=== PATIENT | female | born 1945 | race Caucasian/White ===

== ENCOUNTER 2017-06-19 11:34 | Emergency (ER) | payer MEDICARE, BC ==
[~2017-06-19] VITALS: Ht 165.1 cm; Wt 103.9 kg
[~2017-06-19 11:34] MED LIST: CITA-48 PO; HYDR-2768 PO; LEVO75TA3 PO; LOSA25 PO; METO25 PO
[2017-06-19 11:39] VITALS: BP 124/62; PULSE 69; RESP 16; TEMP 97.9; O2SAT 92
[2017-06-19 12:37] LABS: AUTOMATED NEUTROPHIL # 6.4 TH/MM3 (1.8-7.7); BASOPHIL % 0.3 % (0.0-2.0); EOSINOPHIL # 0.1 TH/MM3 (0-0.4); EOSINOPHIL % 1.1 % (0.0-4.0); HEMATOCRIT 37.9 % (35.0-46.0); HEMOGLOBIN 12.3 GM/DL (11.6-15.3); LYMPHOCYTE # 1.1 TH/MM3 (1.0-4.8); MEAN CELL VOLUME 84.2 FL (80.0-100.0); MEAN CORPUSCULAR HEMOGLOBIN 27.2 PG (27.0-34.0); MEAN CORPUSCULAR HGB CONC 32.3 % (32.0-36.0); MEAN PLATELET VOLUME 8.9 FL (7.0-11.0); MONO % 6.1 % (0.0-8.0); MONOCYTE # 0.5 TH/MM3 (0-0.9); NEUT % 78.5 % (16.0-70.0); PLATELET COUNT 378 TH/MM3 (150-450); RED CELL DISTRIBUTION WIDTH 14.2 % (11.6-17.2); WHITE BLOOD COUNT 8.1 TH/MM3 (4.0-11.0)
[2017-06-19 12:40] LABS: CALCIUM 9.1 MG/DL (8.5-10.1)
[2017-06-19 12:41] LABS: BICARBONATE 29.1 MEQ/L (21.0-32.0)
[2017-06-19 12:42] LABS: INTERNATIONAL NORMALIZED RATIO 1.1 RATIO; PROTHROMBIN TIME - PATIENT 10.7 SEC (9.8-11.6)
[2017-06-19 12:44] LABS: CREATININE 0.95 MG/DL (0.50-1.00)
[2017-06-19] MEDS ORDERED: ADVA500A INH (12:50)
[2017-06-19] MEDS ORDERED: VITA10002 PO (12:50)
[2017-06-19] MEDS ORDERED: CIPR-9 PO (12:50)
[2017-06-19] MEDS ORDERED: PRAV40TA2 PO (12:50)
[2017-06-19] MEDS ORDERED: CENTCHW4 CHEW (12:50)
[2017-06-19] MEDS ORDERED: IPRA0.02 NEB (12:50)
[2017-06-19] MEDS ORDERED: METO25TA3 PO (12:50)
[2017-06-19] MEDS ORDERED: FLAX1000 PO (12:50)
[2017-06-19] MEDS ORDERED: OMEP20TA93 PO (12:50)
[2017-06-19] MEDS ORDERED: LEVO75TA3 PO (12:50)
[2017-06-19] MEDS ORDERED: CALCTAB19 PO (12:50)
[2017-06-19] MEDS ORDERED: CITA40TA4 PO (12:50)
[2017-06-19] MEDS ORDERED: LOSA25TA PO (12:50)
[2017-06-19] MEDS ORDERED: FERR325T18 PO (12:50)
[2017-06-19] MEDS ORDERED: HYDR25TA5 PO (12:50)
[2017-06-19] MEDS ORDERED: APIX5TAB PO (12:55)
--- NOTE | 2017-06-19 12:55 | PD ---
HPI Chief Complaint: Edema Time Seen by Provider: 12:04 Travel History International Travel<30 days: No Contact w/Intl Traveler<30days: No Traveled to known affect area: No History of Present Illness HPI 72-year-old female who was sent here from radiology [facility]. She had been at [facility] [place] getting an ultrasound of her right leg and was found to have a nonocclusive clot in the deep peroneal vein. She has never had a DVT before. She has had multiple skin cancers to this right leg. She has had a skin graft in for about a week. She has had some purulent drainage and is seeing a health records technology teacher who took a culture and has her on Cipro. She says the drainage is improving and the infection appears to be getting much better. She has not had any recent bleeding episodes. No recent surgery. There is been no chest pain or shortness of breath. She does have a history of COPD PFSH Past Medical History Cancer: Yes (SKIN) Cardiovascular Problems: No COPD: Yes Diabetes: No Diminished Hearing: No Endocrine: No Gastrointestinal Disorders: Yes GERD: Yes Genitourinary: No Hepatitis: No Hiatal Hernia: No Hypertension: Yes Immune Disorder: No Musculoskeletal: No Neurologic: No Psychiatric: No Reproductive: No Respiratory: Yes (COPD) Thyroid Disease: Yes Tetanus Vaccination: < 5 Years Influenza Vaccination: Yes ?: Not Past Surgical History Abdominal Surgery: No AICD: No Cardiac Surgery: No Ear Surgery: Yes Endocrine Surgery: No Eye Surgery: Yes (CATRACTS) Genitourinary Surgery: No Gynecologic Surgery: No Joint Replacement: No Oral Surgery: No Pacemaker: No Thoracic Surgery: No Other Surgery: Yes Social History Alcohol Use: Yes Tobacco Use: No Allergies-Medications (Allergen,Severity, Reaction): Coded Allergies: bacitracin (Unverified Allergy, Intermediate, SKIN DISSOLVES, 06/19/17) polymyxin B (Unverified Allergy, Intermediate, SKIN DISSOLVES, 06/19/17) Uncoded Allergies: TAPE (Allergy, Intermediate, BLISTERS, 09/24/15) Reported Meds & Prescriptions Reported Meds & Active Scripts Active Review of Systems General / Constitutional: No: Fever, Chills Eyes: No: Diploplia HENT: No: Headaches, Vertigo Cardiovascular: Positive: Edema, No: Chest Pain or Discomfort, Palpitations Respiratory: No: Cough, Shortness of Breath Gastrointestinal: No: Nausea, Vomiting Genitourinary: No: Urgency Musculoskeletal: No: Myalgias, Arthralgias Skin: No Rash Neurologic: No: Weakness, Dizziness Endocrine: No: Heat Intolerance, Cold Intolerance Hematologic/Lymphatic: No: Easy Bruising Physical Exam Narrative GENERAL well-developed female SKIN: Focused skin assessment warm/dry. HEAD: Atraumatic. Normocephalic. EYES: Pupils equal and round. No scleral icterus. No injection or drainage. ENT: No nasal bleeding or discharge. Mucous membranes pink and moist. NECK: Trachea midline. No JVD. CARDIOVASCULAR: Regular rate and rhythm. No murmur appreciated. RESPIRATORY: No accessory muscle use. Clear to auscultation. Breath sounds equal bilaterally. GASTROINTESTINAL: Abdomen soft, non-tender, nondistended. Hepatic and splenic margins not palpable. MUSCULOSKELETAL: No obvious deformities. No clubbing. No cyanosis. There is swelling of the right lower leg. There is some drainage from skin opening. She says this is improving considerably NEUROLOGICAL: Awake and alert. No obvious cranial nerve deficits. Motor grossly within normal limits. Normal speech. PSYCHIATRIC: Appropriate mood and affect; insight and judgment normal. Data Data Last Documented VS Vital Signs Date Time Temp Pulse Resp B/P (MAP) Pulse Ox O2 Delivery O2 Flow Rate FiO2 06/19/17 11:39 97.9 69 16 124/62 (82) 92 Orders Orders Complete Blood Count With Diff (06/19/17 12:13) Basic Metabolic Panel (Bmp) (06/19/17 12:13) Prothrombin Time / Inr (Pt) (06/19/17 12:13) Act Partial Throm Time (Ptt) (06/19/17 12:13) Labs Laboratory Tests Test 06/19/17 12:20 White Blood Count 8.1 TH/MM3 Red Blood Count 4.50 MIL/MM3 Hemoglobin 12.3 GM/DL Hematocrit 37.9 % Mean Corpuscular Volume 84.2 FL Mean Corpuscular Hemoglobin 27.2 PG Mean Corpuscular Hemoglobin Concent 32.3 % Red Cell Distribution Width 14.2 % Platelet Count 378 TH/MM3 Mean Platelet Volume 8.9 FL Neutrophils (%) (Auto) 78.5 % Lymphocytes (%) (Auto) 14.0 % Monocytes (%) (Auto) 6.1 % Eosinophils (%) (Auto) 1.1 % Basophils (%) (Auto) 0.3 % Neutrophils # (Auto) 6.4 TH/MM3 Lymphocytes # (Auto) 1.1 TH/MM3 Monocytes # (Auto) 0.5 TH/MM3 Eosinophils # (Auto) 0.1 TH/MM3 Basophils # (Auto) 0.0 TH/MM3 CBC Comment DIFF FINAL Differential Comment Prothrombin Time 10.7 SEC Prothromb Time International Ratio 1.1 RATIO Activated Partial Thromboplast Time 29.4 SEC Blood Urea Nitrogen 13 MG/DL Creatinine 0.95 MG/DL Random Glucose 109 MG/DL Calcium Level 9.1 MG/DL Sodium Level 135 MEQ/L Potassium Level 3.6 MEQ/L Chloride Level 101 MEQ/L Carbon Dioxide Level 29.1 MEQ/L Anion Gap 5 MEQ/L Estimat Glomerular Filtration Rate 58 ML/MIN [facility] Medical Decision Making Medical Screen Exam Complete: Yes Emergency Medical Condition: Yes Medical Record Reviewed: Yes Differential Diagnosis Patient has been diagnosed with deep vein thrombosis and was referred here for treatment. She will be started on Eliquis Narrative Course Creatinine is normal. INR normal Diagnosis Primary Impression: Deep vein thrombosis Scripts Apixaban (Eliquis) 5 Mg Tab 5 MG PO BID for Blood Clot Prevention, #60 TAB 0 Refills Prov: Sg Parkinson MD 06/19/17 Disposition: 01 DISCHARGE HOME Condition: Stable Sg Parkinson MD Jun 19, 2017 12:55
[2017-06-19] MEDS ORDERED: XARE20TA PO (13:04)
[2017-06-19] MEDS ORDERED: XARE15TA PO (13:04)
[2017-06-19 13:15] VITALS: BP 103/57; PULSE 76; RESP 16; O2SAT 95
== END 2017-06-19 13:15 | disposition home or self-care (01) ==
LOC: PHED 11:34
DX: I82.401 Acute embolism and thrombosis of unspecified deep veins of right lower extremity (principal); J44.9 Chronic obstructive pulmonary disease, unspecified; K21.9 Gastro-esophageal reflux disease without esophagitis; E07.9 Disorder of thyroid, unspecified
CPT/HCPCS: 80048; 85025; 85610; 85730; 99283

== ENCOUNTER 2017-06-23 09:30 | Inpatient (IN) | payer MEDICARE, BC ==
[~2017-06-23] VITALS: Ht 165.1 cm; Wt 107.4 kg
[2017-06-23] VITALS (10 sets, daily range): BP systolic 92–124; BP diastolic 47–60; PULSE 74–97; RESP 12–20; TEMP 97.3–99.2; O2SAT 93–99
[~2017-06-23 09:30] MED LIST changes: +ADVA500A INH; +CALCTAB19 PO; +CENTCHW4 CHEW; +CIPR-9 PO; -CITA-48 PO; +CITA40TA4 PO; +FERR325T18 PO; +FLAX1000 PO; -HYDR-2768 PO; +HYDR25TA5 PO; +IPRA0.02 NEB; -LOSA25 PO; +LOSA25TA PO; -METO25 PO; +METO25TA3 PO; +OMEP20TA93 PO; +PRAV40TA2 PO; +VITA10002 PO; +XARE15TA PO; +XARE20TA PO
--- NOTE | 2017-06-23 10:40 | PD ---
HPI Chief Complaint: General Weakness Time Seen by Provider: 10:13 Travel History International Travel<30 days: No Contact w/Intl Traveler<30days: No Traveled to known affect area: No History of Present Illness HPI The patient was seen and examined in the presence of the nurse. This patient complains of rectal bleeding. She does have history of intermittent gastric bleeding and gets an endoscopy every 2 years from her GI physician. Takes iron therapy chronically and has black stool chronically. However, she recently was diagnosed with a right leg DVT 3 days ago and started on Xarelto. She developed generalized weakness and fatigue. This morning she had a black stool which is not uncommon for her but reports there was red blood in the toilet as well. Symptom severity is moderate. Duration 3 days. No alleviating factors. Symptoms likely exacerbated by her recent blood thinner use PFSH Past Medical History Hx Anticoagulant Therapy: Yes (XARELTO) Cancer: Yes (SKIN) Cardiovascular Problems: No High Cholesterol: Yes COPD: Yes Diabetes: No Diminished Hearing: No Endocrine: No Gastrointestinal Disorders: Yes GERD: Yes Genitourinary: No Hepatitis: No Hiatal Hernia: No Hypertension: Yes Immune Disorder: No Musculoskeletal: No Neurologic: No Psychiatric: No Reproductive: No Respiratory: Yes (COPD) Thyroid Disease: Yes ?: Not Menopausal: Yes Past Surgical History Abdominal Surgery: No AICD: No Cardiac Surgery: No Ear Surgery: Yes Endocrine Surgery: No Eye Surgery: Yes (CATRACTS) Genitourinary Surgery: No Gynecologic Surgery: No Joint Replacement: No Oral Surgery: No Pacemaker: No Thoracic Surgery: No Other Surgery: Yes (skin flap on right leg ) Social History Alcohol Use: Yes Tobacco Use: No Substance Use: No Allergies-Medications (Allergen,Severity, Reaction): Coded Allergies: bacitracin (Verified Allergy, Intermediate, rash, 06/23/17) polymyxin B (Verified Allergy, Intermediate, rash, 06/23/17) Uncoded Allergies: TAPE (Allergy, Intermediate, BLISTERS, 09/24/15) Reported Meds & Prescriptions Reported Meds & Active Scripts Active Xarelto (Rivaroxaban) 15 Mg Tab 15 Mg PO Q12HR 21 Days Reported Ferrous Sulfate 325 Mg (65 Mg Iron) Tablet 325 Mg PO DAILY Calcium 600+D 200 (Calcium Carbonate-Vitamin D) 600-200 Mg-Unit Tab 1 Tab PO BID Flaxseed Oil (Flaxseed (Linseed)) 1,000 Mg Cap 1 Tab PO DAILY Centrum (Multiple Vitamins W/ Minerals) 1 Chew 1 Tab CHEW DAILY Vitamin B-12 (Cyanocobalamin) 1,000 Mcg Tab 1,000 Mcg PO DAILY Ipratropium Neb (Ipratropium [place]) 0.5 Mg/2.5 Ml Amp 0.5 Mg NEB DAILY Advair Diskus Inh (Fluticasone-Salmeterol Inh) 500-50 Mcg/Blist Aer 1 Puff INH BID Rinse mouth after use. Citalopram (Citalopram Hydrobromide) 40 Mg Tab 40 Mg PO DAILY Levothyroxine (Levothyroxine Sodium) 75 Mcg Tab 75 Mcg PO DAILY Losartan (Losartan Potassium) 25 Mg Tab 25 Mg PO DAILY Pravastatin 40 Mg Tab 40 Mg PO DAILY Metoprolol Tartrate 25 Mg Tab 12.5 Mg PO BID Omeprazole 20 Mg Tab 20 Mg PO DAILY Hydrochlorothiazide 25 Mg Tab 25 Mg PO DAILY Cipro (Ciprofloxacin HCl) 500 Mg Tab 500 Mg PO BID Review of Systems General / Constitutional: No: Fever Eyes: No: Visual changes HENT: Positive: Lightheadedness, No: Headaches Cardiovascular: No: Chest Pain or Discomfort Respiratory: No: Shortness of Breath Gastrointestinal: Positive: Hematochezia, No: Abdominal Pain Genitourinary: No: Dysuria Musculoskeletal: Positive: Weakness, No: Pain Skin: No Rash Neurologic: Positive: Weakness Psychiatric: No: Depression Endocrine: No: Polydipsia Hematologic/Lymphatic: No: Easy Bruising Physical Exam Narrative GENERAL: Well-nourished, well-developed patient in no apparent distress. SKIN: Focused skin assessment reveals no rash and nodules. Skin is Warm and dry. HEAD: Atraumatic. Normocephalic. EYES: Pupils equal and round. No scleral icterus. No injection or drainage. ENT: No nasal bleeding or discharge. Mucous membranes pink and moist. NECK: Trachea midline. No JVD. CARDIOVASCULAR: Regular rate and rhythm. No murmur appreciated. RESPIRATORY: No accessory muscle use. Clear to auscultation. Breath sounds equal bilaterally. GASTROINTESTINAL: Abdomen soft, non-tender, nondistended. Hepatic and splenic margins not palpable. MUSCULOSKELETAL: No clubbing. No cyanosis. Has some edema in both feet and ankle regions. There are 2 wounds on the right anterior tibia. One had some drainage that was cultured. There is no surrounding erythema or fluctuance. NEUROLOGICAL: Awake and alert. No obvious cranial nerve deficits. Motor grossly within normal limits. Normal speech. PSYCHIATRIC: Appropriate mood and affect; insight and judgment normal. Rectal: Patient has dried black blood all around the anal opening therefore I did not bother with a guaiac which would obviously be positive. She has a large external hemorrhoid but is not obviously bleeding Data Data Last Documented VS Vital Signs Date Time Temp Pulse Resp B/P (MAP) Pulse Ox O2 Delivery O2 Flow Rate FiO2 06/23/17 09:37 98.3 97 16 117/56 (76) 99 Orders Orders Complete Blood Count With Diff (06/23/17 10:32) Wound Culture And Gram Stain (06/23/17 10:32) Basic Metabolic Panel (Bmp) (06/23/17 10:32) Electrocardiogram (06/23/17 09:50) Red Blood Cells (Rbc) (06/23/17 11:36) Blood Product Administration (06/23/17 11:36) Sodium Chlor 0.9% 250 Ml Inj (Ns 250 Ml (06/23/17 11:45) Pantoprazole Inj (Protonix Inj) (06/23/17 11:45) Type And Screen (06/23/17 11:36) Labs Laboratory Tests Test 06/23/17 10:45 White Blood Count 16.9 TH/MM3 Red Blood Count 2.37 MIL/MM3 Hemoglobin 6.6 GM/DL Hematocrit 20.4 % Mean Corpuscular Volume 85.8 FL Mean Corpuscular Hemoglobin 28.0 PG Mean Corpuscular Hemoglobin Concent 32.6 % Red Cell Distribution Width 15.1 % Platelet Count 324 TH/MM3 Mean Platelet Volume 9.2 FL Neutrophils (%) (Auto) 86.2 % Lymphocytes (%) (Auto) 9.6 % Monocytes (%) (Auto) 3.6 % Eosinophils (%) (Auto) 0.2 % Basophils (%) (Auto) 0.4 % Neutrophils # (Auto) 14.6 TH/MM3 Lymphocytes # (Auto) 1.6 TH/MM3 Monocytes # (Auto) 0.6 TH/MM3 Eosinophils # (Auto) 0.0 TH/MM3 Basophils # (Auto) 0.1 TH/MM3 CBC Comment DIFF FINAL Differential Comment Blood Urea Nitrogen 33 MG/DL Creatinine 0.87 MG/DL Random Glucose 156 MG/DL Calcium Level 8.1 MG/DL Sodium Level 140 MEQ/L Potassium Level 4.0 MEQ/L Chloride Level 105 MEQ/L Carbon Dioxide Level 26.0 MEQ/L Anion Gap 9 MEQ/L Estimat Glomerular Filtration Rate 64 ML/MIN [facility] Medical Decision Making Medical Screen Exam Complete: Yes Emergency Medical Condition: Yes Medical Record Reviewed: Yes Differential Diagnosis Upper GI bleeding, lower GI bleeding, Xarelto side effect, symptomatic anemia Narrative Course I have reviewed the patient's electronic medical record. I reviewed her ER visit from 3 days ago. She did hemoglobin of 12.3 at that time IV placed and lab studies sent I reviewed her EKG which shows sinus rhythm but no ST elevation or ectopy CBC reveals hemoglobin of 6.6 She has dropped from 12.3 to 6.6 in 3 days' time I've ordered her IV Protonix and 2 units of packed red cell transfusion Her anemia is symptomatic Metabolic profile reveals elevated BUN as is consistent with GI bleed I discussed the case with the hospitalist will admit I discussed the case with the patient's GI physician Dr Valdez and he will have Dr. Saba see the patient Critical Care Narrative Aggregate critical care time was 35 minutes. Time to perform other separately billable procedures was not included in the critical care time. My time did not include minutes spent treating any other patients simultaneously or on activities that did not directly contribute to the patient's treatment. The services I provided to this patient were to treat and/or prevent clinically significant deterioration that could result in: Hemorrhagic shock, cardiopulmonary arrest I provided critical care services requiring my management, as noted below: Chart data review, documentation time, medication orders and management, vital sign assessments/reviewing monitor data, ordering and reviewing lab tests, ordering and interpreting/reviewing x-rays and diagnostic studies, care of the patient and discussion of the patient with the admitting physicians. Diagnosis Primary Impression: GI bleed Qualified Codes: K92.2 - Gastrointestinal hemorrhage, unspecified Additional Impression: Anticoagulated Admitting Information Admitting Physician Requests: Fly Marsh MD Jun 23, 2017 10:40
[2017-06-23 10:53] LABS: AUTOMATED NEUTROPHIL # 14.6 TH/MM3 (1.8-7.7); BASOPHIL # 0.1 TH/MM3 (0-0.2); BASOPHIL % 0.4 % (0.0-2.0); EOSINOPHIL % 0.2 % (0.0-4.0); LYMPH % 9.6 % (9.0-44.0); LYMPHOCYTE # 1.6 TH/MM3 (1.0-4.8); MEAN CELL VOLUME 85.8 FL (80.0-100.0); MEAN CORPUSCULAR HGB CONC 32.6 % (32.0-36.0); MEAN PLATELET VOLUME 9.2 FL (7.0-11.0); MONO % 3.6 % (0.0-8.0); MONOCYTE # 0.6 TH/MM3 (0-0.9); NEUT % 86.2 % (16.0-70.0); PLATELET COUNT 324 TH/MM3 (150-450); RED BLOOD COUNT 2.37 MIL/MM3 (4.00-5.30); RED CELL DISTRIBUTION WIDTH 15.1 % (11.6-17.2); WHITE BLOOD COUNT 16.9 TH/MM3 (4.0-11.0)
[2017-06-23 10:58] LABS: HEMATOCRIT 20.4 % (35.0-46.0); HEMOGLOBIN 6.6 GM/DL (11.6-15.3)
[2017-06-23 11:14] LABS: CALCIUM 8.1 MG/DL (8.5-10.1); CREATININE 0.87 MG/DL (0.50-1.00)
[2017-06-23] MEDS ORDERED: PANTOPRAZOLE SODIUM 40 MG VIAL IV PUSH ONE (11:45)
[2017-06-23] MEDS ORDERED: SODIUM CHLOR 0.9% 250 ML INJ 250 ML IV ONE ×2 (11:45→22:45)
[2017-06-23] MEDS: SODIUM CHLOR 0.9% 1000 ML INJ 1,000 ML IV SCH (12:16)
[2017-06-23] MEDS ORDERED: RESP: ALBUTEROL 1.25 MG/3 ML NEB (PRN) NEB (13:00)
[2017-06-23] MEDS ORDERED: ONDANSETRON HCL 4 MG/2 ML VIAL IV PUSH PRN (13:15)
--- NOTE | 2017-06-23 13:15 | HHI.HP ---
[facility] Service [place] [facility] Primary Care Physician Rl Bridges MD Admission Diagnosis gi bleed,anticoagulated,symptomatic anemia Diagnoses: (1) GI bleed Diagnosis: Principal Chief Complaint: rectal bleed Travel History International Travel<30 Days: No Contact w/Intl Traveler <30 Da: No Traveled to Known Affected Are: No History of Present Illness patient is a 72 y/o female with history of recently-diagnosed right leg DVT, anemia, hypertension, dyslipidemia, hypothyroidism and COPD who presented to ER with rectal bleed. she says that she's been recently treated for cellulitis of the right lower extremity. she had a venous doppler of the right leg which revealed DVT. she was seen in ER few days ago and was discharged home on Xarelto. she says that since then she's been feeling tired, fatigued with some sob and on and off dizziness. she says that she's always had black stool but she related this to iron supplements that she was taking. this morning when she was at her PCP's office, when she went to bathroom, she saw some bright red blood mixed with her stool.she denies any abdominal pain or emesis although she says that had some nausea earlier. she had an EGD about two years ago during which she had cautery for water-melon stomach. she also had a colonoscopy two years which was reportedly normal. she's being followed up by . Review of Systems Constitutional: COMPLAINS OF: Fatigue, Dizziness, DENIES: Fever, Weight loss, Chills, Night Sweats Eyes: DENIES: Blurred vision, Diplopia, Vision loss, Double Vision Ears, nose, mouth, throat: DENIES: Tinnitus, Vertigo, Throat pain, Epistaxis Respiratory: COMPLAINS OF: Shortness of breath, DENIES: Apneas, Cough, Snoring , Wheezing, Hemoptysis, Sputum production Cardiovascular: COMPLAINS OF: Lower Extremity Edema, DENIES: Chest pain, Palpitations, Syncope, Dyspnea on Exertion, PND, Orthopnea, Claudication Gastrointestinal: DENIES: Abdominal pain, Black stools, Bloody stools, Constipation, Diarrhea, Nausea, Vomiting, Difficulty Swallowing, Anorexia Genitourinary: DENIES: Urinary frequency, Urgency, Hematuria, Dysuria Musculoskeletal: DENIES: Joint pain, Muscle aches, Stiffness, Joint Swelling Integumentary: DENIES: Rash Neurologic: DENIES: Abnormal gait, Headache, Localized weakness, Paresthesias, Seizures, Speech Problems, Tremor, Poor Balance Psychiatric: DENIES: Anxiety, Confusion, Mood changes, Depression, Hallucinations, Agitation, Suicidal Ideation, Homicidal Ideation, Delusions Past Family Social History Past Medical History recently-diagnosed DVT/ hypertension/ COPD/ dyslipidemia/ hypothyroidism. Past Surgical History carpal tunnel surgery. skin graft on the right leg. Reported Medications Ferrous Sulfate 325 Mg (65 Mg Iron) Tablet 325 Mg PO DAILY Calcium 600+D 200 (Calcium Carbonate-Vitamin D) 600-200 Mg-Unit Tab 1 Tab PO BID Flaxseed Oil (Flaxseed (Linseed)) 1,000 Mg Cap 1 Tab PO DAILY Centrum (Multiple Vitamins W/ Minerals) 1 Chew 1 Tab CHEW DAILY Vitamin B-12 (Cyanocobalamin) 1,000 Mcg Tab 1,000 Mcg PO DAILY Ipratropium Neb (Ipratropium [place]) 0.5 Mg/2.5 Ml Amp 0.5 Mg NEB DAILY Advair Diskus Inh (Fluticasone-Salmeterol Inh) 500-50 Mcg/Blist Aer 1 Puff INH BID Rinse mouth after use. Citalopram (Citalopram Hydrobromide) 40 Mg Tab 40 Mg PO DAILY Levothyroxine (Levothyroxine Sodium) 75 Mcg Tab 75 Mcg PO DAILY Losartan (Losartan Potassium) 25 Mg Tab 25 Mg PO DAILY Pravastatin 40 Mg Tab 40 Mg PO DAILY Metoprolol Tartrate 25 Mg Tab 12.5 Mg PO BID Omeprazole 20 Mg Tab 20 Mg PO DAILY Hydrochlorothiazide 25 Mg Tab 25 Mg PO DAILY Cipro (Ciprofloxacin HCl) 500 Mg Tab 500 Mg PO BID Allergies: Coded Allergies: bacitracin (Verified Allergy, Intermediate, rash, 06/23/17) polymyxin B (Verified Allergy, Intermediate, rash, 06/23/17) Uncoded Allergies: TAPE (Allergy, Intermediate, BLISTERS, 09/24/15) Active Ordered Medications Inpatient Medications Pantoprazole Sodium (Protonix Inj) 40 mg Q24H IV PUSH ; Start 06/24/17 at 09:00 Sodium Chloride 1,000 ml @ 75 mls/hr [id number] IV Last administered on 06/23/17at 12:16; Start 06/23/17 at 12:00 Family History not significant. Social History quit smoking few years ago- doesn't drink. Physical Exam Vital Signs Vital Signs Date Time Temp Pulse Resp B/P (MAP) Pulse Ox O2 Delivery O2 Flow Rate FiO2 06/23/17 12:17 92 12 99/53 (68) 98 Room Air 06/23/17 09:37 98.3 97 16 117/56 (76) 99 Physical Exam GENERAL: This is a well-nourished, well-developed patient, in no apparent distress. SKIN: No rashes, ecchymoses or lesions. Cool and dry. HEAD: Atraumatic. Normocephalic. No temporal or scalp tenderness. EYES: pale conjunctivae. ENT: Nose without bleeding, purulent drainage or septal hematoma. Throat without erythema, tonsillar hypertrophy or exudate. Uvula midline. Airway patent. NECK: Trachea midline. No JVD or lymphadenopathy. Supple, nontender, no meningeal signs. CARDIOVASCULAR: Regular rate and rhythm without murmurs, gallops, or rubs. RESPIRATORY: Clear to auscultation. Breath sounds equal bilaterally. No wheezes , rales, or rhonchi. GASTROINTESTINAL: Abdomen soft, non-tender, nondistended. No hepato-splenomegaly , or palpable masses. No guarding. MUSCULOSKELETAL: Extremities without clubbing, cyanosis, or edema. No joint tenderness, effusion, or edema noted. No calf tenderness. Negative Homans sign bilaterally. NEUROLOGICAL: Awake and alert. Cranial nerves II through XII intact. Motor and sensory grossly within normal limits. Five out of 5 muscle strength in all muscle groups. Normal speech. Laboratory Laboratory Tests Test 06/23/17 10:45 White Blood Count 16.9 Red Blood Count 2.37 Hemoglobin 6.6 Hematocrit 20.4 Mean Corpuscular Volume 85.8 Mean Corpuscular Hemoglobin 28.0 Mean Corpuscular Hemoglobin Concent 32.6 Red Cell Distribution Width 15.1 Platelet Count 324 Mean Platelet Volume 9.2 Neutrophils (%) (Auto) 86.2 Lymphocytes (%) (Auto) 9.6 Monocytes (%) (Auto) 3.6 Eosinophils (%) (Auto) 0.2 Basophils (%) (Auto) 0.4 Neutrophils # (Auto) 14.6 Lymphocytes # (Auto) 1.6 Monocytes # (Auto) 0.6 Eosinophils # (Auto) 0.0 Basophils # (Auto) 0.1 CBC Comment DIFF FINAL Differential Comment Blood Urea Nitrogen 33 Creatinine 0.87 Random Glucose 156 Calcium Level 8.1 Sodium Level 140 Potassium Level 4.0 Chloride Level 105 Carbon Dioxide Level 26.0 Anion Gap 9 Estimat Glomerular Filtration Rate 64 Date/Time Source Procedure Growth Status 06/23/17 10:40 Wound Leg Gram Stain Pending Received 06/23/17 10:40 Wound Leg Wound Culture Pending Received Result Diagram: 06/23/17 1045 06/23/17 1045 Caprini VTE Risk Assessment Caprini VTE Risk Assessment: Mod/High Risk (score >= 2) Caprini Risk Assessment Model Point Value = 1 Point Value = 2 Point Value = 3 Point Value = 5 Age 41-60 Minor surgery BMI > 25 kg/m2 Swollen legs Varicose veins or History of unexplained or recurrent spontaneous Oral contraceptives or hormone replacement Sepsis (< 1 month) Serious lung disease, including pneumonia (< 1 month) Abnormal pulmonary function Acute myocardial infarction Congestive heart failure (< 1 month) History of inflammatory bowel disease Medical patient at bed rest Age 61-74 Arthroscopic surgery Major open surgery (> 45 min) Laparoscopic surgery (> 45 min) Malignancy Confined to bed (> 72 hours) Immobilizing plaster cast Central venous access Age >= 75 History of VTE Family history of VTE Factor V Leiden Prothrombin [id number] Lupus anticoagulant Anticardiolipin antibodies Elevated serum homocysteine Heparin-induced thrombocytopenia Other congenital or acquired thrombophilia Stroke (< 1 month) Elective arthroplasty Hip, pelvis, or leg fracture Acute spinal cord injury (< 1 month) Prophylaxis Regimen Total Risk Factor Score Risk Level Prophylaxis Regimen 0-1 Low Early ambulation 2 Moderate Order ONE of the following: *Sequential Compression Device (SCD) *Heparin 5000 units SQ BID 3-4 Higher Order ONE of the following medications: *Heparin 5000 units SQ TID *Enoxaparin/Lovenox 40 mg SQ daily (WT < 150 kg, CrCl > 30 mL/min) *Enoxaparin/Lovenox 30 mg SQ daily (WT < 150 kg, CrCl > 10-29 mL/min) *Enoxaparin/Lovenox 30 mg SQ BID (WT < 150 kg, CrCl > 30 mL/min) AND/OR *Sequential Compression Device (SCD) 5 or more Highest Order ONE of the following medications: *Heparin 5000 units SQ TID (Preferred with Epidurals) *Enoxaparin/Lovenox 40 mg SQ daily (WT < 150 kg, CrCl > 30 mL/min) *Enoxaparin/Lovenox 30 mg SQ daily (WT < 150 kg, CrCl > 10-29 mL/min) *Enoxaparin/Lovenox 30 mg SQ BID (WT < 150 kg, CrCl > 30 mL/min) AND *Sequential Compression Device (SCD) Assessment and Plan Assessment and Plan A/P - anemia; acute due to blood loss - rectal bleed keep NPO for now- start on IV fluid- continue PPI. transfuse with PRBC and monitor H/H closely- consult GI. -DVT of the right leg- started on Xarelto a few days ago hold anticoagulation for now due to GI bleed/ awaiting GI evaluation. -hypertension; hold home meds due to rectal bleed and low-normal BP's- will monitor -cellulitis of the right leg; has been treated with Cipro with reported improvement- will continue. -leukocytosis; possible reactive; repeat CBC tomorrow. -dyslipidemia/ hypothyroidism; resume home meds - when GI w/u completed. Discussed Condition With ER physician and the patient. Physician Certification 2 Midnight Certification Type: Admission for Inpatient Services Order for Inpatient Services The services are ordered in accordance with Medicare regulations or non- Medicare payer requirements, as applicable. In the case of services not specified as inpatient-only, they are appropriately provided as inpatient services in accordance with the 2-midnight benchmark. Estimated LOS (days): 2 days is the estimated time the patient will need to remain in the hospital, assuming treatment plan goals are met and no additional complications. Post-Hospital Plan: Home Problem Qualifiers (1) GI bleed: Qualified Codes: K92.2 - Gastrointestinal hemorrhage, unspecified Josefa Pinto MD Jun 23, 2017 13:15
[2017-06-23] MEDS: CIPROFLOXACIN 400 MG PREMIX 200 ML IV SCH (14:29)
--- NOTE | 2017-06-23 17:13 | MB ---
cc: Dougie Saba MD DATE OF CONSULT: 06/23/2017 REASON FOR GASTROENTEROLOGY CONSULTATION: Evaluation of rectal bleed, symptomatic anemia. HISTORY OF PRESENT ILLNESS: This 72-year-old female recently was diagnosed with a DVT in the right lower extremity. She has been treated with Xarelto recently and then she developed rectal bleeding of bright blood. She also was treated for cellulitis of the right lower extremity as well. She felt tired, fatigued, weak, short of breath, symptomatic and was found to have a hemoglobin of 6.7. She is currently being transfused. She has been followed by Dr. 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 She also has a history of multiple small bowel angiodysplasia found on capsule endoscopy at that time as well. Her colonoscopy revealed diverticulosis and benign colon polyps 2016. She has had no significant weight loss. She denies abdominal pain or vomiting. She denies any NSAID use. We were asked to evaluate her further for her gastrointestinal bleeding. PAST MEDICAL HISTORY: Includes COPD, hyperlipidemia, hypothyroidism, carpal tunnel syndrome, skin graft to the lower right leg. History of bronchospasm as well. MEDICATIONS: Ferrous sulfate, calcium, flax seed oil, Centrum, vitamin B12, Advair Diskus, citalopram, Levothyroxine, losartan, pravastatin, metoprolol, omeprazole, hydrochlorothiazide and recently ciprofloxacin. ALLERGIES: BACITRACIN, POLYMYXIN. FAMILY HISTORY: Negative from a GI standpoint. SOCIAL HISTORY: She stopped smoking several years ago. She does not consume alcohol. REVIEW OF SYSTEMS: A 12-point review of systems was stated in the HPI. PHYSICAL EXAMINATION: GENERAL: Well developed, obese female, alert, in no acute distress. VITAL SIGNS: Stable. HEENT: Normocephalic. Sclerae anicteric. Oral mucosa dry. NECK: Supple. No JVD. CARDIAC: S1, S2, regular rhythm, no murmur. CHEST: Clear to A and P. No wheezing. ABDOMEN: Obese, soft, nontender. Bowel sounds are present and I do not detect any hepatosplenomegaly. No guarding. EXTREMITIES: Without clubbing, cyanosis. There is slight edema in the right lower extremity. There is erythema in the right lower extremity was well. Slightly tender. NEUROLOGIC: She is awake and alert and cranial nerves II through XII are intact. LABORATORY DATA: White count is 16.9. Her electrolytes were stable. Creatinine is 0.87. IMPRESSION: 1. History of deep vein thrombosis, cellulitis. 2. Recent Xarelto therapy. 3. New onset gastrointestinal bleed. 4. History of gastric antral vascular ectasia. 5. History of angiodysplasia of the small bowel. 6. History of colon polyps. PLAN: Would transfuse to an adequate hemoglobin. Monitor closely. Her current anticoagulation is on hold. Would continue to hold for now. We could consider EDG to quickly evaluate the patient's GAVE and see if that is the source of her bleeding. Obviously, we could dealing with multiple sources including multiple small bowel angiodysplasia. If her upper endoscopy is unremarkable, she may need small bowel enteroscopy at some point. If she stabilizes that will be with double balloon enteroscopy. She may need a referral for that evaluation. I doubt the patient is having bleeding from a lower GI source, although if bleeding continues, this may also need to be evaluated and assessed. I have discussed this with the patient in detail. Procedure, risks, and benefits of endoscopy were discussed. She can attempt clear liquids for today, n.p.o. after midnight. Thank you kindly for this consult. MD OLU oCe/JAZ , 03:54 PM , 05:12 PM
[2017-06-23] MEDS: BUDESONIDE-FORMOTEROL 160/4.5 MCG INHALER INH SCH (21:50)
[2017-06-23 22:25] LABS: HEMATOCRIT 19.4 % (35.0-46.0); HEMOGLOBIN 6.5 GM/DL (11.6-15.3)
[2017-06-23] MEDS ORDERED: FUROSEMIDE 20 MG/2 ML VIAL IV PUSH ONE (22:45)
[2017-06-24] MEDS: SODIUM CHLOR 0.9% 1000 ML INJ 1,000 ML IV SCH ×3 (01:20→21:58)
[2017-06-24] MEDS: CIPROFLOXACIN 400 MG PREMIX 200 ML IV SCH (02:05)
[2017-06-24 03:20] VITALS: BP 105/55; PULSE 89; RESP 18; TEMP 97.6; O2SAT 96
[2017-06-24] MEDS ORDERED: CHLORHEXIDINE GLUCONATE 2 % 1 PACK (2 CLOTHS) TOPICAL PRN (04:00)
[2017-06-24] MEDS ORDERED: LACTATED RINGER'S 1000 ML IV PRN (04:00)
[2017-06-24] MEDS ORDERED: POVIDONE IODINE 5% (ANTISEPSIS KIT) 4 APPLICATIONS EACH NARE PRN (04:00)
[2017-06-24 04:53] LABS: AUTOMATED NEUTROPHIL # 12.4 TH/MM3 (1.8-7.7); BASOPHIL # 0.1 TH/MM3 (0-0.2); BASOPHIL % 0.4 % (0.0-2.0); EOSINOPHIL # 0.1 TH/MM3 (0-0.4); EOSINOPHIL % 0.4 % (0.0-4.0); HEMATOCRIT 22.3 % (35.0-46.0); HEMOGLOBIN 7.8 GM/DL (11.6-15.3); LYMPH % 17.6 % (9.0-44.0); LYMPHOCYTE # 2.8 TH/MM3 (1.0-4.8); MEAN CELL VOLUME 82.7 FL (80.0-100.0); MEAN CORPUSCULAR HEMOGLOBIN 28.8 PG (27.0-34.0); MEAN CORPUSCULAR HGB CONC 34.8 % (32.0-36.0); MEAN PLATELET VOLUME 9.3 FL (7.0-11.0); MONO % 3.6 % (0.0-8.0); MONOCYTE # 0.6 TH/MM3 (0-0.9); PLATELET COUNT 229 TH/MM3 (150-450); RED CELL DISTRIBUTION WIDTH 15.4 % (11.6-17.2); WHITE BLOOD COUNT 15.9 TH/MM3 (4.0-11.0)
[2017-06-24 08:00] VITALS: BP 95/46; PULSE 87; RESP 16; TEMP 96.7; O2SAT 97
[2017-06-24 08:26] LABS: HEMATOCRIT 22.1 % (35.0-46.0); HEMOGLOBIN 7.5 GM/DL (11.6-15.3)
[2017-06-24] MEDS: BUDESONIDE-FORMOTEROL 160/4.5 MCG INHALER INH SCH ×2 (09:16→21:58)
[2017-06-24] MEDS: PANTOPRAZOLE SODIUM 40 MG VIAL IV PUSH SCH (09:16)
--- NOTE | 2017-06-24 10:44 | HHI.PR ---
Subjective Remarks + bright red blood per rectum this am 2x feels weak denies any abdominal pain recently started on Xarelto for DVT of the right leg DVT also recent cellulitis right leg-- per patient was cultures- reportedly "strep" and started on Cipro as OP Objective Vitals Vital Signs Date Time Temp Pulse Resp B/P (MAP) Pulse Ox O2 Delivery O2 Flow Rate FiO2 06/24/17 08:00 96.7 87 16 95/46 (62) 97 06/24/17 03:20 97.6 89 18 105/55 96 06/23/17 23:49 97.7 74 18 115/53 94 06/23/17 20:00 98.7 79 18 105/51 (69) 97 06/23/17 18:15 99.2 95 16 97/47 93 06/23/17 17:58 98.9 92 16 92/47 96 06/23/17 17:45 96 21 06/23/17 16:00 97.3 83 17 124/60 (81) 96 06/23/17 14:49 (68) 06/23/17 14:16 98.8 95 20 101/52 96 06/23/17 14:04 98.8 89 12 95/47 98 06/23/17 12:17 92 12 99/53 (68) 98 Room Air I/O 06/23/17 06/23/17 06/23/17 06/24/17 06/24/17 06/24/17 07:00 15:00 23:00 07:00 15:00 23:00 Intake Total 20 ml 1095 ml 800 ml Balance 20 ml 1095 ml 800 ml Intake Oral 275 ml Packed Cells 800 ml 800 ml Blood Product IV Normal Saline Flush 20 ml 20 ml # Voids 1 3 # Bowel Movements 3 Result Diagram: 06/24/17 0815 06/23/17 1045 Objective Remarks awake and alert oriented x 3 anicteric lungs- clear regular rhythm abdomen- flabby soft nontender, good bowel sounds right LE- with large area erythema of the tibial area- open wound draining purulent pus, foul right LE/calf - ++swelling tibial surface- + marked erythema with fluctuance ++ pulses A/P Problem List: (1) GI bleed ICD Code: K92.2 - Gastrointestinal hemorrhage, unspecified Status: Acute Assessment and Plan 72 years old female Acute anemia secondary to GI bleeding - bright red blood per rectum - for scope today- EGD/and possible colonoscopy - stat H and H now - S/P 2 units RBC - give another unit RBC now- symptomatic + bleeding - ff H and H Recent history of right leg peroneal DVT 3/5- recent right leg skin graft procedure by OP dermatology - first episode/provoked - placed on Xarelto- DC with active GI bleeding - consider IVC filter - get Hematology input for recommendations Right LE cellulitis- with open wound- draining pus with area of fluctuance- possible abscess vs infected hematoma -reportedly Strep on culture -on Cipro as OP - change to IV Vancomycin - will try to get records on Monday - ff final sensitivity- gram + cocci - get an US - soft tissue check for collection - wound care nurse consult -dyslipidemia/ hypothyroidism; resume home meds - when GI w/u completed. Discussed Condition With patient and significant other Problem Qualifiers (1) GI bleed: Qualified Codes: K92.2 - Gastrointestinal hemorrhage, unspecified Regina Vu MD Jun 24, 2017 10:44
[2017-06-24] MEDS ORDERED: VANCOMYCIN INJ 1,000 MG in SODIUM CHLOR 0.9% 250 ML INJ 250 ML IV SCH (11:15)
[2017-06-24] MEDS ORDERED: Vancomycin Consult Pharmacy 1 EA OTHER SCH (11:15)
[2017-06-24] MEDS ORDERED: ONDANSETRON HCL 4 MG/2 ML VIAL IV ONE (12:00)
[2017-06-24] MEDS ORDERED: SODIUM CHLOR 0.9% 1000 ML INJ 1,000 ML IV ONE (12:00)
[2017-06-24] MEDS ORDERED: PROPOFOL 200 MG/20 ML AMP IV ONE (12:00)
[2017-06-24] MEDS ORDERED: SUCCINYLCHOLINE CHLORIDE 200 MG/10 ML VIAL IV ONE (12:00)
[2017-06-24] MEDS ORDERED: DEXAMETHASONE SOD PHOS 4 MG/ML VIAL IV ONE (12:00)
[2017-06-24] MEDS ORDERED: PHENYLEPH/NS 1000 MCG/10 ML SYR IV ONE (12:00)
[2017-06-24] MEDS ORDERED: LIDOCAINE HCL 1% PF 5 ML SYRINGE OTHER ONE (12:00)
[2017-06-24] MEDS ORDERED: OXYMETAZOLINE HCL 0.05% 15 ML NASAL SPRAY ONE (12:27)
[2017-06-24] MEDS ORDERED: *RESP: ALBUTEROL 2.5 MG/3 ML NEB (PRN) PERIprocedural Use ONLY NEB ONE (13:19)
[2017-06-24] MEDS ORDERED: FUROSEMIDE 20 MG/2 ML VIAL ONE (13:42)
[2017-06-24] MEDS ORDERED: DO NOT ADM ANY ANTICOAGULANT DRUGS PRN (13:45)
[2017-06-24 13:49] LABS: HEMATOCRIT 26.4 % (35.0-46.0); HEMOGLOBIN 8.6 GM/DL (11.6-15.3)
[2017-06-24] MEDS ORDERED: VANCOMYCIN INJ 1,250 MG in SODIUM CHLOR 0.9% 250 ML INJ 250 ML IV SCH (14:00)
[2017-06-24] MEDS ORDERED: FUROSEMIDE 20 MG/2 ML VIAL IV PUSH ONE (14:15)
[2017-06-24 16:00] VITALS: BP 117/55; PULSE 95; RESP 16; TEMP 97.8; O2SAT 95
--- NOTE | 2017-06-24 17:04 | RADRPT ---
EXAM DATE/TIME: 06/24/2017 15:48 CORRECTION Corrected on: June 25, 2017; [facility] COMPARISON: No previous studies available for comparison. INDICATIONS : Abscess. MEDICAL HISTORY : Chronic obstructive pulmonary disease. Gastroesophageal reflux disease. Hypertension. Xarelto. Dyspne a. Skin cancer. SURGICAL HISTORY : Cataract surgery. Skin flap on right leg. Ear surgery. ENCOUNTER: Initial ACUITY: 1 week PAIN SCORE: 3/10 LOCATION: Right leg. AREA EVALUATED: Right anterior mid mckoy. FINDINGS: Elongated complex fluid collection in the soft tissues just anterior to the proximal tibia. It measur es 5.0 x 0.8 x 1.9 cm. CONCLUSION: Elongated fluid collection in the anterior soft tissues of the proximal right lower leg. Differential diagnosis includes abscess and hematoma. This finding can be further evaluated with MRI with and wit hout contrast or CT with contrast. Norberto Reece MD on June 24, 2017 at 17:00 Board Certified Radiologist. This report was verified electronically. Osmar Galindo MD on June 25, 2017 at 10:29 Board Certified Radiologist. This report was verified electronically.
[2017-06-24] MEDS: SUCRALFATE 1 GM/10 ML CUP NG SCH (17:56)
[2017-06-24 18:27] LABS: ALBUMIN 2.5 GM/DL (3.4-5.0); BICARBONATE 25.4 MEQ/L (21.0-32.0); CALCIUM 7.2 MG/DL (8.5-10.1); CREATININE 0.91 MG/DL (0.50-1.00)
[2017-06-24 18:31] LABS: CALCIUM-PROTEIN CORRECTED 7.9 MG/DL (8.5-10.1); TOTAL BILIRUBIN ADULT 0.4 MG/DL (0.2-1.0); TOTAL PROTEIN 5.7 GM/DL (6.4-8.2)
--- NOTE | 2017-06-24 19:39 | MR ---
cc: Dougie Saba MD 06/24/2017 PROCEDURE PERFORMED: EGD with APC fulguration. INDICATION FOR PROCEDURE: The patient presented with GI bleed, symptomatic anemia, on anticoagulation therapy, history of GAVE. Upper endoscopy is being performed for evaluation of upper GI bleeding. Photographs were taken. PREMEDICATIONS: Administered by Anesthesiology. The patient was also intubated to protect the airway. MONITORING: Accomplished with pulse oximeter, EKG, blood pressure monitor. DESCRIPTION OF PROCEDURE: After informed consent was obtained and the procedure risks and benefits were explained, including the risk of bleeding, sepsis, perforation and risk with anesthesia, the patient was placed in the left lateral position, the video endoscope was inserted into the esophagus. Upon entrance into the distal esophagus, it was noted that the patient had blood. Upon entrance into the stomach, bright red blood with clots was noted. At that point, the scope was withdrawn, the patient was intubated to protect the airway and the scope was reintroduced. Evaluation of the stomach was difficult because of the amount of blood. This was suctioned as best possible and lavaged with water. There was diffuse oozing in the antral region from the patient's history of gastric antral vascular ectasia. In the retroflexed view, I could not appreciate any bleeding. There was some blood in the proximal stomach and fundal area. Although, the active bleeding seemed to be coming from the antral region, the pylorus was patent. The duodenum except for the blood was unremarkable. No active bleeding source was seen in the duodenum. Attention was directed to the antrum, where the lavage device was utilized to help expose the mucosa, although there was diffuse oozing present and clots were present making visualization quite difficult. Using the APC device with a gastric setting, several areas were cauterized where it was though to be oozing and good tissue coagulant was achieved. This was done several times. Some of the areas were not able to be exposed adequately because of the oozing, blood and clots. But nonetheless, the bleeding seemed to slow down after this procedure was attempted and performed. It was felt prudent to terminate the exam at that point. We suctioned the fluids as best possible and then an NG tube was inserted as well for decompression of the stomach and release of fluid, secretions and blood. Postprocedure vital signs were stable. No immediate complications were noted. IMPRESSION: This examination revealed active bleeding in the stomach, specifically the patient has a 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 Several areas were cauterized using the APC device. Some areas were difficult to visualize because of the aforementioned reasons above. The patient was given 1 unit of blood during the procedure. PLAN: We will follow the H and H closely. We will administer Carafate via the NG tube and continue with decompression for now. This eventually can be removed. If the patient's bleeding continues, she will need a second look endoscopy at some point for further treatment with the APC device if needed. Monitor the H and H closely. MD OLU Coe/JAZ , 12:43 PM , 07:37 PM
[2017-06-24 20:00] VITALS: BP 137/53; PULSE 99; RESP 16; TEMP 96.6; O2SAT 95
[2017-06-24 20:22] LABS: HEMATOCRIT 23.6 % (35.0-46.0); HEMOGLOBIN 8.1 GM/DL (11.6-15.3)
--- NOTE | 2017-06-24 23:20 | EKG ---
Date Performed: 06/23/2017 Time Performed: 09:50:58 PTAGE: 72 years EKG: Sinus rhythm NONSPECIFIC ST & T-WAVE ABNORMALITY BORDERLINE ECG PREVIOUS TRACING : 09/24/2015 09.35 Since the prior tracing, there has been no significant millan DOCTOR: Elder Pandya Interpretating Date/Time 06/24/2017 23:19:57
--- NOTE | 2017-06-24 23:24 | EKG ---
Date Performed: 06/23/2017 Time Performed: 10:36:56 PTAGE: 72 years EKG: Sinus rhythm NONSPECIFIC T-WAVE ABNORMALITY BORDERLINE ECG Since the prior tracing, there has been no significant change DOCTOR: Elder Pandya Interpretating Date/Time 06/24/2017 23:24:25
[2017-06-25] VITALS (7 sets, daily range): BP systolic 92–125; BP diastolic 44–58; PULSE 75–92; RESP 16–20; TEMP 96.8–98.8; O2SAT 92–97
[2017-06-25] MEDS: BUDESONIDE-FORMOTEROL 160/4.5 MCG INHALER INH SCH ×2 (09:00→20:17)
[2017-06-25] MEDS: SUCRALFATE 1 GM/10 ML CUP NG SCH ×3 (09:37→17:13)
[2017-06-25] MEDS: PANTOPRAZOLE SODIUM 40 MG VIAL IV PUSH SCH (09:37)
--- NOTE | 2017-06-25 09:46 | MB ---
cc: Abdi Romo MD DATE OF CONSULT: 06/24/2017 REASON FOR CONSULTATION: Consult requested by hospitalist for evaluation of right lower extremity DVT in a patient who is admitted with GI bleeding. HISTORY OF PRESENT ILLNESS: Hafsa is a 72-year-old female. She has a history of GAVE (gastric antral vascular ectasia). This was diagnosed by Dr. Jefferson a few years ago. She also has angiodysplasia of the small bowel which was picked up on capsule enteroscopy. 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 Recently, she had a skin graft placed on her right lower leg. She stated that it got infected and then she was treated with antibiotics. Due to the swelling of the right lower extremity, a Doppler ultrasound was done last week on 06/19 at [facility]. This showed nonocclusive right lower extremity DVT. The patient was referred to the emergency room. In the emergency room, patient was evaluated by the ER physician and was placed on Eliquis and she was discharged to home, to be followed up by her primary physician. Patient states that she did feel well, but in the last few days she was complaining of difficulty breathing and has severe dyspnea on exertion. She stated that she was a little tired, that she could hardly walk. She had called her primary physician, Dr. Bridges, who recommended she should come to the emergency room. She came to the ER yesterday and a CBC showed hemoglobin 6.6. This was compared to 06/19 where her hemoglobin was 12.3. This is a significant drop in the hemoglobin. She had developed GI bleeding. Anticoagulation was held. GI was consulted. Dr. Saba saw her and did the upper endoscopy. He found active bleeding from the stomach due to the GAVE. He did cauterization as much as possible; however, he was unable to cauterize all the bleeding spots. Patient has received a blood transfusion and her hemoglobin has improved. I have been asked to see the patient for further evaluation of the DVT of the right lower extremity and make recommendations for anticoagulation versus IVC filter. The patient states that she never had a blood clot before; this was her first episode. This was mostly likely provoked due to her recent surgery on her right lower extremity. She denies any nausea, vomiting, diarrhea, or constipation. She denies any headaches or dizziness. Her appetite is good. The rest of the review of systems is negative. PAST MEDICAL HISTORY: COPD, hypercholesterolemia, hypothyroidism, carpal tunnel syndrome, skin cancer. PAST SURGICAL HISTORY: Skin biopsies with recent skin graft to the right lower extremity. EGDs and colonoscopy. ALLERGIES: BACITRACIN AND POLYMYXIN. FAMILY HISTORY: No family history of any malignancy. SOCIAL HISTORY: She used to smoke cigarettes, but quit a long time ago. She does not drink alcohol. She is retired. MEDICATIONS: Carafate, vancomycin, Protonix, Symbicort, albuterol nebulizer. PHYSICAL EXAMINATION: This is a well-developed, elderly white female, in no apparent distress. VITAL SIGNS: Temperature 97.8, heart rate is 95, blood pressure 117/55, O2 saturation 95%. HEAD, EYES, EARS, NOSE, AND THROAT: Pupils equal, round, reactive to light and accommodation, extraocular movements intact. Anicteric. No oral lesions noted. No thrush noted. NECK: Supple. No JVD. No masses noted. LUNGS: Clear. No wheezing, rhonchi, or rales. HEART: Regular rate and rhythm. No murmur heard. ABDOMEN: Soft and nontender. No hepatosplenomegaly. No abnormal bowel sounds. No guarding or rigidity noted. EXTREMITIES: No pedal edema. No cyanosis, no clubbing. NEUROLOGIC: Awake, alert, oriented x 3. Sensory and motor seem to be intact. SKIN: No bruises or petechiae noted. BREASTS: No masses noted. LYMPH NODES: No cervical, supraclavicular, or axillary lymphadenopathy noted. BACK: There is no spinal tenderness noted. ASSESSMENT: 1. First provoked episode of nonocclusive right lower extremity deep vein thrombosis. 2. Significant gastrointestinal bleeding since she has been placed on anticoagulation, Eliquis. 3. Gastric antral vascular ectasia and arteriovenous malformation of the small bowel causing significant gastrointestinal bleeding with anticoagulation. PLAN: I have reviewed her available records and I had an extensive discussion with the patient regarding her right lower extremity DVT. She had a Doppler ultrasound on 06/19 which showed DVT. She was referred to the emergency room. Her hemoglobin at that time was 12. She was started on Eliquis. She came in to the emergency room yesterday and her hemoglobin was 6.6, so within 4 days, her hemoglobin dropped from 12 to 6. This is significant bleeding. Anticoagulation has been stopped due to the GI bleeding. She had an upper endoscopy and had cauterization of the bleeding spots in the stomach. The patient had received several blood transfusions, at least 5 units. Her hemoglobin has improved to 8.1. I have discussed with the patient that I do not recommend any anticoagulation due to significant GI bleeding. I agree for her to have IVC filter placement. She agreed with that plan. She also does not want to take the blood thinners. Please consult radiology for IVC filter placement. Thank you for asking my opinion. Evans Romo MD AJJuan Carlos/TI , 04:06 AM , 09:45 AM MTDD
--- NOTE | 2017-06-25 10:13 | HHI.PR ---
Subjective Remarks feeling better and stronger no episodes of hematemesis, melena or hematochezia no fever Objective Vitals Vital Signs Date Time Temp Pulse Resp B/P (MAP) Pulse Ox O2 Delivery O2 Flow Rate FiO2 06/25/17 08:00 97.6 83 16 92/44 (60) 92 06/25/17 04:30 18 110/58 (75) 06/25/17 00:33 98.8 92 16 104/50 (68) 92 06/24/17 20:00 96.6 99 16 137/53 (81) 95 06/24/17 16:00 97.8 95 16 117/55 (75) 95 06/24/17 14:00 98.2 91 18 119/56 (77) 96 Nasal Cannula 2 Aerosol Mask 06/24/17 13:45 90 20 121/58 (79) 96 Nasal Cannula 2 Aerosol Mask 06/24/17 13:30 90 20 123/58 (79) 97 Nasal Cannula 2 Aerosol Mask 06/24/17 13:15 88 19 121/59 (79) 98 Nasal Cannula 2 Aerosol Mask 06/24/17 13:00 95 18 122/57 (78) 96 Nasal Cannula 3 06/24/17 12:53 98.1 100 18 130/60 (83) 95 Nasal Cannula 3 I/O 06/24/17 06/24/17 06/24/17 06/25/17 06/25/17 06/25/17 07:00 15:00 23:00 07:00 15:00 23:00 Intake Total 800 ml 2100 ml 1000 ml Output Total 150 ml Balance 800 ml 1950 ml 1000 ml Intake Oral 0 ml IV Total 1700 ml 1000 ml Packed Cells 800 ml 400 ml Output Estimated Blood Loss 150 ml # Voids 3 5 2 # Bowel Movements 3 2 Result Diagram: 06/24/17195206/23/17 1045 Imaging Last Impressions Lower Extremity Ultrasound 06/24/17 0000 Signed Impressions: Service Date/Time: Saturday, June 24, 2017 15:48 - CONCLUSION: Elongated fluid collection in the anterior soft tissues of the proximal left lower leg. Differential diagnosis includes abscess and hematoma. This finding can be further evaluated with MRI with and without contrast or CT with contrast. Norberto Reece MD Objective Remarks awake and alert oriented x 3 anicteric lungs- clear regular rhythm abdomen- flabby soft nontender, good bowel sounds right LE- with large area erythema of the tibial area- open wound draining purulent pus, foul right LE/calf - ++swelling tibial surface- + marked erythema with fluctuance ++ pulses Procedures 06/24-EGD - revealed active bleeding in the stomach, specifically the patient has a 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 Several areas were cauterized using the APC device. Some areas were difficult to visualize because of the aforementioned reasons above. The patient was given 1 unit of blood during the procedure. A/P Problem List: (1) GI bleed ICD Code: K92.2 - Gastrointestinal hemorrhage, unspecified Status: Acute Assessment and Plan 72 years old female Acute anemia secondary to GI bleeding S/P EGD 06/24= vascular ectasia S/P cautery - got another unit during EGD -- CBC now . transfuse if still low - continue PPI/Sucralfate - advance diet -GI ff Recent history of right leg peroneal DVT 06/19- recent right leg skin graft procedure by OP dermatology - first episode/provoked - for IVC filter- consult IR- - d/w ID- hold for tomorrow- - wound want to see MRI of the leg first - no OAC - appreciate input Right LE cellulitis with Abscess- - Gram + cocci in clusters -reportedly Strep on culture as OP -was on Cipro as OP - change to IV Vancomycin 06/24 - ff final sensitivity- here with gram + cocci in clusters - US- abscess vs hematoma- get MRI -consider I and D - wound care nurse consult - ID consult for recommendation -dyslipidemia/ hypothyroidism; resume home meds - when GI w/u completed. Discussed Condition With patient and significant other Problem Qualifiers (1) GI bleed: Qualified Codes: K92.2 - Gastrointestinal hemorrhage, unspecified Regina Vu MD Jun 25, 2017 10:13
[2017-06-25 11:20] LABS: AUTOMATED NEUTROPHIL # 15.1 TH/MM3 (1.8-7.7); BASOPHIL # 0.1 TH/MM3 (0-0.2); BASOPHIL % 0.3 % (0.0-2.0); HEMOGLOBIN 7.4 GM/DL (11.6-15.3); LYMPH % 11.5 % (9.0-44.0); LYMPHOCYTE # 2.1 TH/MM3 (1.0-4.8); MEAN CELL VOLUME 85.5 FL (80.0-100.0); MEAN CORPUSCULAR HEMOGLOBIN 28.9 PG (27.0-34.0); MEAN CORPUSCULAR HGB CONC 33.8 % (32.0-36.0); MEAN PLATELET VOLUME 9.1 FL (7.0-11.0); MONOCYTE # 0.7 TH/MM3 (0-0.9); NEUT % 84.2 % (16.0-70.0); PLATELET COUNT 208 TH/MM3 (150-450); RED BLOOD COUNT 2.57 MIL/MM3 (4.00-5.30); RED CELL DISTRIBUTION WIDTH 16.1 % (11.6-17.2); WHITE BLOOD COUNT 17.9 TH/MM3 (4.0-11.0)
[2017-06-25 11:34] LABS: BICARBONATE 26.3 MEQ/L (21.0-32.0); CALCIUM 7.6 MG/DL (8.5-10.1); CREATININE 0.83 MG/DL (0.50-1.00)
--- NOTE | 2017-06-25 12:13 | HHI.GIFU ---
Subjective Remarks ALert NAD feeling better no bms Hb 8.1 now 7 .4 Tolerating po well Objective Vitals I&O Vital Signs Date Time Temp Pulse Resp B/P (MAP) Pulse Ox O2 Delivery O2 Flow Rate FiO2 06/25/17 08:00 97.6 83 16 92/44 (60) 92 06/25/17 04:30 18 110/58 (75) 06/25/17 00:33 98.8 92 16 104/50 (68) 92 06/24/17 20:00 96.6 99 16 137/53 (81) 95 06/24/17 16:00 97.8 95 16 117/55 (75) 95 06/24/17 14:00 98.2 91 18 119/56 (77) 96 Nasal Cannula 2 Aerosol Mask 06/24/17 13:45 90 20 121/58 (79) 96 Nasal Cannula 2 Aerosol Mask 06/24/17 13:30 90 20 123/58 (79) 97 Nasal Cannula 2 Aerosol Mask 06/24/17 13:15 88 19 121/59 (79) 98 Nasal Cannula 2 Aerosol Mask 06/24/17 13:00 95 18 122/57 (78) 96 Nasal Cannula 3 06/24/17 12:53 98.1 100 18 130/60 (83) 95 Nasal Cannula 3 I/O 06/24/17 06/24/17 06/24/17 06/25/17 06/25/17 06/25/17 07:00 15:00 23:00 07:00 15:00 23:00 Intake Total 800 ml 2100 ml 1000 ml 100 ml Output Total 150 ml Balance 800 ml 1950 ml 1000 ml 100 ml Intake Oral 0 ml IV Total 1700 ml 1000 ml 100 ml Packed Cells 800 ml 400 ml Output Estimated Blood Loss 150 ml # Voids 3 5 2 # Bowel Movements 3 2 Laboratory Laboratory Tests Test 06/24/17 17:13 06/25/17 10:52 Protein Corrected Calcium 7.9 MG/DL Total Protein 5.7 GM/DL Alkaline Phosphatase 54 U/L Alanine Aminotransferase (ALT/SGPT) 13 U/L Total Bilirubin 0.4 MG/DL White Blood Count 17.9 TH/MM3 Red Blood Count 2.57 MIL/MM3 Hemoglobin 7.4 GM/DL Hematocrit 22.0 % Mean Corpuscular Volume 85.5 FL Mean Corpuscular Hemoglobin 28.9 PG Mean Corpuscular Hemoglobin Concent 33.8 % Red Cell Distribution Width 16.1 % Platelet Count 208 TH/MM3 Mean Platelet Volume 9.1 FL Neutrophils (%) (Auto) 84.2 % Lymphocytes (%) (Auto) 11.5 % Monocytes (%) (Auto) 4.0 % Eosinophils (%) (Auto) 0.0 % Basophils (%) (Auto) 0.3 % Neutrophils # (Auto) 15.1 TH/MM3 Lymphocytes # (Auto) 2.1 TH/MM3 Monocytes # (Auto) 0.7 TH/MM3 Eosinophils # (Auto) 0.0 TH/MM3 Basophils # (Auto) 0.1 TH/MM3 CBC Comment DIFF FINAL Differential Comment Blood Urea Nitrogen 16 MG/DL Creatinine 0.83 MG/DL Random Glucose 138 MG/DL Calcium Level 7.6 MG/DL Sodium Level 142 MEQ/L Potassium Level 3.1 MEQ/L Chloride Level 108 MEQ/L Carbon Dioxide Level 26.3 MEQ/L Anion Gap 8 MEQ/L Estimat Glomerular Filtration Rate 68 ML/MIN Laboratory Tests Test 06/24/17 13:33 06/24/17 17:13 06/24/17 19:53 06/25/17 10:52 Hemoglobin 8.6 8.1 7.4 Hematocrit 26.4 23.6 22.0 Total Protein 5.7 Alkaline Phosphatase 54 Alanine Aminotransferase (ALT/SGPT) 13 Total Bilirubin 0.4 Anion Gap 8 8 Estimat Glomerular Filtration Rate 61 68 Protein Corrected Calcium 7.9 White Blood Count 17.9 Red Blood Count 2.57 Mean Corpuscular Volume 85.5 Mean Corpuscular Hemoglobin 28.9 Mean Corpuscular Hemoglobin Concent 33.8 Red Cell Distribution Width 16.1 Platelet Count 208 Mean Platelet Volume 9.1 Neutrophils (%) (Auto) 84.2 Lymphocytes (%) (Auto) 11.5 Monocytes (%) (Auto) 4.0 Eosinophils (%) (Auto) 0.0 Basophils (%) (Auto) 0.3 Neutrophils # (Auto) 15.1 Lymphocytes # (Auto) 2.1 Monocytes # (Auto) 0.7 Eosinophils # (Auto) 0.0 Basophils # (Auto) 0.1 CBC Comment DIFF FINAL Differential Comment Blood Urea Nitrogen 16 Creatinine 0.83 Random Glucose 138 Calcium Level 7.6 Sodium Level 142 Potassium Level 3.1 Chloride Level 108 Carbon Dioxide Level 26.3 Date/Time Source Procedure Growth Status 3/9/18 10:40 Wound Leg Gram Stain - Final Complete 06/23/17 10:40 Wound Culture - Final Group B Beta Strep Complete Imaging Laboratory Tests Test 06/24/17 17:13 06/25/17 10:52 Protein Corrected Calcium 7.9 MG/DL Total Protein 5.7 GM/DL Alkaline Phosphatase 54 U/L Alanine Aminotransferase (ALT/SGPT) 13 U/L Total Bilirubin 0.4 MG/DL White Blood Count 17.9 TH/MM3 Red Blood Count 2.57 MIL/MM3 Hemoglobin 7.4 GM/DL Hematocrit 22.0 % Mean Corpuscular Volume 85.5 FL Mean Corpuscular Hemoglobin 28.9 PG Mean Corpuscular Hemoglobin Concent 33.8 % Red Cell Distribution Width 16.1 % Platelet Count 208 TH/MM3 Mean Platelet Volume 9.1 FL Neutrophils (%) (Auto) 84.2 % Lymphocytes (%) (Auto) 11.5 % Monocytes (%) (Auto) 4.0 % Eosinophils (%) (Auto) 0.0 % Basophils (%) (Auto) 0.3 % Neutrophils # (Auto) 15.1 TH/MM3 Lymphocytes # (Auto) 2.1 TH/MM3 Monocytes # (Auto) 0.7 TH/MM3 Eosinophils # (Auto) 0.0 TH/MM3 Basophils # (Auto) 0.1 TH/MM3 CBC Comment DIFF FINAL Differential Comment Blood Urea Nitrogen 16 MG/DL Creatinine 0.83 MG/DL Random Glucose 138 MG/DL Calcium Level 7.6 MG/DL Sodium Level 142 MEQ/L Potassium Level 3.1 MEQ/L Chloride Level 108 MEQ/L Carbon Dioxide Level 26.3 MEQ/L Anion Gap 8 MEQ/L Estimat Glomerular Filtration Rate 68 ML/MIN Physical Exam H CHEST: Chest is clear to auscultation and percussion. CARDIAC: Regular rate and rhythm with no murmur gallop or rubs. ABDOMEN: Soft, nondistended, nontender; bs pos EXTREMITIES: No clubbing, cyanosis, or edema. SKIN: Normal; no rash; no jaundice. 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
[2017-06-25] MEDS ORDERED: ACETAMINOPHEN 325 MG TAB PO PRN (12:15)
[2017-06-25] MEDS ORDERED: diphenhydrAMINE HCL 25 MG CAP PO PRN (12:15)
[2017-06-25] MEDS ORDERED: SODIUM CHLOR 0.9% 250 ML INJ 250 ML IV ONE (12:15)
--- NOTE | 2017-06-25 12:29 | PD.ONC.PN ---
Subjective Subjective Remarks Afebrile Patient reports overall she is feeling better Still having shortness of breath with ambulation Denies any obvious bleeding Has not had a bowel movement in 2 days Objective Data Date Time Temp Pulse Resp B/P (MAP) Pulse Ox O2 Delivery O2 Flow Rate FiO2 06/25/17 08:00 97.6 83 16 92/44 (60) 92 06/25/17 04:30 18 110/58 (75) 06/25/17 00:33 98.8 92 16 104/50 (68) 92 06/24/17 20:00 96.6 99 16 137/53 (81) 95 06/24/17 16:00 97.8 95 16 117/55 (75) 95 06/24/17 14:00 98.2 91 18 119/56 (77) 96 Nasal Cannula 2 Aerosol Mask 06/24/17 13:45 90 20 121/58 (79) 96 Nasal Cannula 2 Aerosol Mask 06/24/17 13:30 90 20 123/58 (79) 97 Nasal Cannula 2 Aerosol Mask 06/24/17 13:15 88 19 121/59 (79) 98 Nasal Cannula 2 Aerosol Mask 06/24/17 13:00 95 18 122/57 (78) 96 Nasal Cannula 3 06/24/17 12:53 98.1 100 18 130/60 (83) 95 Nasal Cannula 3 06/25/17 06/25/17 06/25/17 07:00 15:00 23:00 Intake Total 100 ml Balance 100 ml Result Diagram: 06/25/17 1052 06/25/17 1052 Laboratory Results Laboratory Tests Test 06/24/17 13:33 06/24/17 17:13 06/24/17 19:53 06/25/17 10:52 Hemoglobin 8.6 GM/DL 8.1 GM/DL 7.4 GM/DL Hematocrit 26.4 % 23.6 % 22.0 % Total Protein 5.7 GM/DL Alkaline Phosphatase 54 U/L Alanine Aminotransferase (ALT/SGPT) 13 U/L Total Bilirubin 0.4 MG/DL Anion Gap 8 MEQ/L 8 MEQ/L Estimat Glomerular Filtration Rate 61 ML/MIN 68 ML/MIN Protein Corrected Calcium 7.9 MG/DL White Blood Count 17.9 TH/MM3 Red Blood Count 2.57 MIL/MM3 Mean Corpuscular Volume 85.5 FL Mean Corpuscular Hemoglobin 28.9 PG Mean Corpuscular Hemoglobin Concent 33.8 % Red Cell Distribution Width 16.1 % Platelet Count 208 TH/MM3 Mean Platelet Volume 9.1 FL Neutrophils (%) (Auto) 84.2 % Lymphocytes (%) (Auto) 11.5 % Monocytes (%) (Auto) 4.0 % Eosinophils (%) (Auto) 0.0 % Basophils (%) (Auto) 0.3 % Neutrophils # (Auto) 15.1 TH/MM3 Lymphocytes # (Auto) 2.1 TH/MM3 Monocytes # (Auto) 0.7 TH/MM3 Eosinophils # (Auto) 0.0 TH/MM3 Basophils # (Auto) 0.1 TH/MM3 CBC Comment DIFF FINAL Differential Comment Blood Urea Nitrogen 16 MG/DL Creatinine 0.83 MG/DL Random Glucose 138 MG/DL Calcium Level 7.6 MG/DL Sodium Level 142 MEQ/L Potassium Level 3.1 MEQ/L Chloride Level 108 MEQ/L Carbon Dioxide Level 26.3 MEQ/L Culture Results Microbiology Date/Time Source Procedure Growth Status 06/23/17 10:40 Wound Leg Gram Stain - Final Complete 06/23/17 10:40 Wound Culture - Final Group B Beta Strep Complete Administered Medications Medications (Trade) Dose Ordered Sig/Mook Route PRN Reason Start Time Stop Time Status Last Admin Dose Admin Pantoprazole Sodium (Protonix Inj) 40 mg Q24H IV PUSH 06/24/17 09:00 06/25/17 09:37 Sodium Chloride 1,000 ml @ 30 mls/hr Q24H IV 06/23/17 12:00 06/24/17 21:58 Budesonide/ Formoterol Fumarate (Symbicort 160-4.5 Mcg Inh) 2 puff BID INH 06/23/17 21:00 06/25/17 09:00 Vancomycin HCl 1250 mg/Sodium Chloride 262.5 ml @ 250 mls/hr Q24H IV 06/24/17 14:00 06/24/17 16:35 Sucralfate (Carafate Liq) 1 gm TID NG 06/24/17 18:00 06/25/17 09:37 Objective Remarks GENERAL: Older female sitting up on side of bed in no obvious distress SKIN: Warm and dry. HEAD: Normocephalic. EYES: No injection or drainage. NECK: Supple, trachea midline. CARDIOVASCULAR: +S1/S2. RESPIRATORY: Breath sounds equal bilaterally. No accessory muscle use. GASTROINTESTINAL: Abdomen soft, non-tender, nondistended. EXTREMITIES: Right lower extremity appears to have previous skin graft. 2+edema with area of scant drainage proximally. MUSCULOSKELETAL: Adequate muscle tone. NEUROLOGICAL: No obvious focal deficit. Awake, alert, and oriented x3. Assessment/Plan Problem List: (1) GI bleed ICD Codes: K92.2 - Gastrointestinal hemorrhage, unspecified Status: Acute Plan: 06/25/17: The patient is not a candidate for anticoagulation therefore we have asked radiology to place an IVC filter tomorrow. The patient is symptomatic with shortness of breath on exertion with a hemoglobin of 7.4. Transfuse 1 unit packed red blood cells today. --GI following Hx/Workup: The patient had a skin graft placed on her right lower extremity for skin cancer. This got infected and she was treated with antibiotics. Due to swelling she had a Doppler ultrasound done at [facility] on June 19 that showed a nonocclusive right lower extremity DVT. The patient was placed on Eliquis but developed difficulty breathing and shortness of breath on exertion and came to the emergency room. It was noted that her hemoglobin dropped from 12.3 on June 19 to 6.6 on admission. Patient had an upper endoscopy this admission and active bleeding was found in the stomach due to the GAVE. (2) DVT (deep venous thrombosis) ICD Codes: I82.409 - Acute embolism and thrombosis of unspecified deep veins of unspecified lower extremity Plan: --Diagnosed on ultrasound at [facility] on June 19 --Anticoagulation is contraindicated due to history of GAVE --Patient developed GI bleed on Eliquis Assessment 72-year-old female with history of GAVE recently started on anticoagulation who developed a GI bleed Attending Statement The exam, history, and the medical decision-making described in the above note were completed with the assistance of the mid-level provider. I reviewed and agree with the findings presented. I attest that I had a [id number] encounter with the patient on the same day, and personally performed and documented my assessment and findings in the medical record. C/O weakness and KONG Hg dropped today. PRBC today await IR to place IVC filter. will follow. Problem Qualifiers (1) GI bleed: Qualified Codes: K92.2 - Gastrointestinal hemorrhage, unspecified Bird,Maria Antonia L LABORATORY ENGINEER Jun 25, 2017 12:29 Evans Romo MD Jun 25, 2017 23:33
--- NOTE | 2017-06-25 12:54 | PD.CONS ---
History of Present Illness Service Infectious disease Consult Requested By Dr Palomo Vu Reason for Consult Evaluate patient with leg abscess, has strep Primary Care Physician Rl Bridges MD Diagnoses: History of Present Illness Patient seen and examined. Records reviewed. Ex Patient is a 72-year-old female, recently diagnosed to have DVT, was started on Xarelto, and patient to the hospital any of fatigue, on and off dizziness and shortness of breath. She has noted some black stool but she didn't think much of it because she was on iron supplements. However on one of her bowel movement she noted some bright red blood. She denies any abdominal pain. She has known gastric vascular ectasia and follows a GI regularly. She was actually in her PCPs office when she had the bright red blood in her stool. She presented to the hospital, and her hemoglobin was down to 6. Patient had upper endoscopy and showed bleeding from her stomach. Patient has had history of multiple skin cancers including basal cell carcinoma as well as squamous cell carcinoma. She had multiple recurrent skin cancers on her right leg, requiring wide excision and it was squamous cell carcinoma. She had surgical resection as well as radiation treatment. She and up with extensive wounds, and subsequently underwent reconstructive surgery to her right leg with muscle flaps. It was apparently done about 4 years ago in [place]. All her wounds healed up, but her right leg has been swollen since. About 2 weeks ago she had an episode of fever and chills and body aches, and noted swelling on her right leg. She went her primary care physician, she was diagnosed to have cellulitis and was given Keflex. Her fever and chills went away. She had an ultrasound done on her right lower extremity which was done about a week after her doctor's visit and she was found to have a DVT. She was sent to the emergency room and I was June 19 and started on Xarelto. 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 Around the same time she noted an open wound developing on her upper anterior leg and started draining. Wound was cultured and it is growing strep agalactiae. Infectious disease consultation has been requested to evaluate the patient. Review of Systems Constitutional: COMPLAINS OF: Fatigue, Fever, Chills Eyes: DENIES: Eye pain Ears, nose, mouth, throat: DENIES: Nasal discharge, Oral lesions, Throat pain, Sinus Pain Respiratory: COMPLAINS OF: Cough, DENIES: Shortness of breath Cardiovascular: COMPLAINS OF: Lower Extremity Edema, DENIES: Chest pain, Palpitations Gastrointestinal: COMPLAINS OF: Abdominal pain, DENIES: Nausea, Vomiting, Difficulty Swallowing Genitourinary: DENIES: Urinary frequency, Dysuria Musculoskeletal: DENIES: Joint pain, Joint Swelling Integumentary: DENIES: Rash Hematologic/lymphatic: DENIES: Lymphadenopathy Neurologic: DENIES: Headache, Localized weakness Psychiatric: DENIES: Hallucinations Past Family Social History Allergies: Coded Allergies: bacitracin (Verified Allergy, Intermediate, rash, 06/23/17) polymyxin B (Verified Allergy, Intermediate, rash, 06/23/17) Uncoded Allergies: TAPE (Allergy, Intermediate, BLISTERS, 09/24/15) Past Medical History recently-diagnosed DVT Hypertension COPD Dyslipidemia Hypothyroidism. Skin CA - basal and squamous cell S/P XRT RLE for skin CA Past Surgical History Wide excision of skin CA Reconstructive surgery to RLE with muscle flap Active Ordered Medications Current Medications Medications (Trade) Dose Ordered Sig/Mook Route Start Time Stop Time Status Last Admin (Protonix Inj) 40 mg Q24H IV PUSH 06/24/17 09:00 06/25/17 09:37 Sodium Chloride 1,000 ml @ 30 mls/hr Q24H IV 06/23/17 12:00 06/24/17 21:58 (Albuterol Neb) 1.25 mg Q2HR NEB PRN NEB 06/23/17 13:00 (Symbicort 160-4.5 Mcg Inh) 2 puff BID INH 06/23/17 21:00 06/25/17 09:00 (Zofran Inj) 4 mg Q8H PRN IV PUSH 06/23/17 13:15 Lactated Ringer's 1,000 ml @ 30 mls/hr Q24H PRN IV 06/24/17 04:00 06/27/17 03:59 (Betadine 5% Antisepsis Kit) 1 applic BUSINESS [employer]ACTICES OFFICER PRN EACH NARE 06/24/17 04:00 06/27/17 03:59 (Chlorhexidine 2% Cloth) 3 pack BUSINESS [employer]ACTICES OFFICER PRN TOPICAL 06/24/17 04:00 06/27/17 03:59 Pharmacy Profile Note 0 ml @ 0 mls/hr UNSCH OTHER 06/24/17 11:15 Vancomycin HCl 1250 mg/Sodium Chloride 262.5 ml @ 250 mls/hr Q24H IV 06/24/17 14:00 06/24/17 16:35 Miscellaneous Information SPECIFIC LAB TO BE DRAWN:VANCO TROUGH DATE TO... ONCE ONCE .XX 06/27/17 13:45 06/27/17 13:46 Miscellaneous Information ALL NURSING DEPARTME... UNSCH PRN .XX 06/24/17 13:45 06/25/17 13:44 (Carafate Liq) 1 gm TID NG 06/24/17 18:00 06/25/17 09:37 Sodium Chloride 250 ml @ 15 mls/hr ONCE ONCE IV 06/25/17 12:15 06/26/17 04:54 (Tylenol) 650 mg Q4H PRN PO 06/25/17 12:15 06/25/17 23:59 (Benadryl) 25 mg Q4H PRN PO 06/25/17 12:15 06/25/17 23:59 Family History Non-contributory Social History Ex smoke No ETOH abuse No illicit drugs Physical Exam Vital Signs Vital Signs Date Time Temp Pulse Resp B/P (MAP) Pulse Ox O2 Delivery O2 Flow Rate FiO2 06/25/17 12:00 97.1 75 16 118/55 (76) 97 06/25/17 08:00 97.6 83 16 92/44 (60) 92 06/25/17 04:30 18 110/58 (75) 06/25/17 00:33 98.8 92 16 104/50 (68) 92 06/24/17 20:00 96.6 99 16 137/53 (81) 95 06/24/17 16:00 97.8 95 16 117/55 (75) 95 06/24/17 14:00 98.2 91 18 119/56 (77) 96 Nasal Cannula 2 Aerosol Mask 06/24/17 13:45 90 20 121/58 (79) 96 Nasal Cannula 2 Aerosol Mask 06/24/17 13:30 90 20 123/58 (79) 97 Nasal Cannula 2 Aerosol Mask 06/24/17 13:15 88 19 121/59 (79) 98 Nasal Cannula 2 Aerosol Mask 06/24/17 13:00 95 18 122/57 (78) 96 Nasal Cannula 3 06/24/17 12:53 98.1 100 18 130/60 (83) 95 Nasal Cannula 3 Physical Exam GENERAL: Patient is a well-nourished, well-developed female, awake and alert, not in respiratory distress. SKIN: Warm and dry. No generalized rash, no ecchymoses and no evidence of embolic lesions. HEAD: Atraumatic. Normocephalic. No temporal wasting, or tenderness. EYES: [place] conjunctiva. No petechia or hemorrhage. Pupils equal, round and reactive to light. Extraocular movements full and intact. No scleral icterus. No injection or drainage. EARS, NOSE AND THROAT: Nose without bleeding or purulent nasal discharge. No sinus tenderness. Mucous membranes pink and moist. No oral lesions noted. NECK: Trachea midline. Supple and not tender, no meningeal signs CARDIOVASCULAR: Regular rate and rhythm. No murmurs, rubs or gallops heard RESPIRATORY: Clear to auscultation. Breath sounds equal bilaterally. No rales , wheezing or rhonchi ABDOMEN: Soft, non-tender, nondistended. Bowel sounds present and normoactive. No guarding. No rebound. No organomegaly. EXTREMITIES: No clubbing, cyanosis. RLE larger compared to LLE. Has multiple scars in RLE from previous surgeries. There is a draining wound in upper anterior R leg that is about 1/2 inch size and distal to this is a small fluctuant area of about the same size. The wound is draining copious purulent fluid. There is erythema on the anterior R leg, no odor., Has R calf tenderness. Well perfused and warm. NEUROLOGICAL: Awake and alert. Cranial nerves grossly intact. Motor grossly within normal limits. PSYCHIATRIC: Normal affect, calm and cooperative. LINE: No evidence of infection Laboratory Laboratory Tests Test 06/24/17 13:33 06/24/17 17:13 06/24/17 19:53 06/25/17 10:52 Hemoglobin 8.6 8.1 7.4 Hematocrit 26.4 23.6 22.0 Total Protein 5.7 Alkaline Phosphatase 54 Alanine Aminotransferase (ALT/SGPT) 13 Total Bilirubin 0.4 Anion Gap 8 8 Estimat Glomerular Filtration Rate 61 68 Protein Corrected Calcium 7.9 White Blood Count 17.9 Red Blood Count 2.57 Mean Corpuscular Volume 85.5 Mean Corpuscular Hemoglobin 28.9 Mean Corpuscular Hemoglobin Concent 33.8 Red Cell Distribution Width 16.1 Platelet Count 208 Mean Platelet Volume 9.1 Neutrophils (%) (Auto) 84.2 Lymphocytes (%) (Auto) 11.5 Monocytes (%) (Auto) 4.0 Eosinophils (%) (Auto) 0.0 Basophils (%) (Auto) 0.3 Neutrophils # (Auto) 15.1 Lymphocytes # (Auto) 2.1 Monocytes # (Auto) 0.7 Eosinophils # (Auto) 0.0 Basophils # (Auto) 0.1 CBC Comment DIFF FINAL Differential Comment Blood Urea Nitrogen 16 Creatinine 0.83 Random Glucose 138 Calcium Level 7.6 Sodium Level 142 Potassium Level 3.1 Chloride Level 108 Carbon Dioxide Level 26.3 Date/Time Source Procedure Growth Status 06/23/17 10:40 Wound Leg Gram Stain - Final Complete 06/23/17 10:40 Wound Culture - Final Group B Beta Strep Complete Result Diagram: 06/25/17 1052 06/25/17 1052 Imaging RADIOLOGY STUDIES/FILMS REVIEWED Lower Extremity Ultrasound 06/24/17 0000 Signed Impressions: Service Date/Time: Saturday, June 24, 2017 15:48 - CONCLUSION: Elongated fluid collection in the anterior soft tissues of the proximal right lower leg. Differential diagnosis includes abscess and hematoma. This finding can be further evaluated with MRI with and without contrast or CT with contrast. Norberto Reece MD Assessment and Plan Assessment and Plan IMPRESSION Cellulitis R leg with abscess most likely - has had muscle flap to that leg - no hardware - C/S GBS UGIB from stomach, hx gastric vascular ectasia DVT RLE Known COPD RECOMMENDATION Agree with MRI RLE If with abscess, will get surgical evaluation Change Abx to Rocephin Monitor progress I will follow along with you Thank you for this consultation Discussed Condition With Explained plan to patient D/W Mary Degroot MD Jun 25, 2017 12:54
[2017-06-25] MEDS ORDERED: GADODIAMIDE PF 287 MG/ML 20 ML VIAL (for RAD MRI) IVCONTRAST ONE (13:38)
[2017-06-25] MEDS: cefTRIAXone INJ 2,000 MG in SODIUM CHLORIDE 0.9% INJ 100 ML IV SCH (14:00)
--- NOTE | 2017-06-25 14:04 | RADRPT ---
EXAM DATE/TIME: 06/25/2017 13:23 [facility] COMPARISON: No previous studies available for comparison. INDICATIONS : Abscess. CONTRAST: 20 cc Omniscan (gadodiamide) IV MEDICAL HISTORY : Chronic obstructive pulmonary disease. Gastroesophageal reflux disease. Hypertension. DVT,skin cancer . SURGICAL HISTORY : Cataract surgery. Skin flap on right leg. ENCOUNTER: Initial ACUITY: 2 day PAIN SCORE: 3/10 LOCATION: Right lower extremity. TECHNIQUE: Multiplanar multisequence MRI examination of the lower leg was performed with and without contrast. FINDINGS: There is a skin ulceration in the pretibial soft tissues with a rim-enhancing fluid collection measur ing up to about 3 cm x 0.9 cm characteristic of a small abscess on the anteromedial surface of the ti bial shaft. There is surrounding subcutaneous edema and cellulitis which extends into the medial musc ulature. There is no significant signal abnormality within the tibia to suggest osteomyelitis. CONCLUSION: 1. Small pretibial abscess measuring up to 3 x 0.9 cm with surrounding cellulitis. No evidence for os teomyelitis. Sunil Templeton MD on June 25, 2017 at 13:59 Board Certified Radiologist. This report was verified electronically.
[2017-06-25] MEDS: POTASSIUM BICARBONATE 25 MEQ EFFERVESCENT TAB PO ONE (18:00)
[2017-06-25 20:13] LABS: HEMATOCRIT 24.8 % (35.0-46.0); HEMOGLOBIN 8.4 GM/DL (11.6-15.3)
[2017-06-25] MEDS ORDERED: POTASSIUM BICARBONATE 25 MEQ EFFERVESCENT TAB PO ONE (20:30)
[2017-06-25] MEDS: SODIUM CHLOR 0.9% 1000 ML INJ 1,000 ML IV SCH (23:58)
[2017-06-26] VITALS (7 sets, daily range): BP systolic 108–131; BP diastolic 52–72; PULSE 75–89; RESP 17–20; TEMP 96.6–98.8; O2SAT 93–96
[2017-06-26 07:15] LABS: HEMATOCRIT 22.6 % (35.0-46.0); HEMOGLOBIN 7.7 GM/DL (11.6-15.3)
[2017-06-26] MEDS: SUCRALFATE 1 GM/10 ML CUP NG SCH ×3 (09:00→18:00)
[2017-06-26] MEDS: BUDESONIDE-FORMOTEROL 160/4.5 MCG INHALER INH SCH ×2 (10:00→20:18)
--- NOTE | 2017-06-26 10:03 | HHI.PR ---
Subjective Remarks feeling stronger up sitting no melena or hematochezia Hct- drop from 8.5- 7.6 wound still draining copious amount of pus when squeezed Objective Vitals Vital Signs Date Time Temp Pulse Resp B/P (MAP) Pulse Ox O2 Delivery O2 Flow Rate FiO2 06/26/17 08:00 97.5 75 17 113/72 (86) 95 06/26/17 00:48 97.5 76 18 108/52 (70) 95 06/25/17 20:00 97.7 90 18 112/57 (75) 95 06/25/17 16:00 96.9 92 16 125/58 (80) 96 06/25/17 14:12 96.8 92 20 117/57 06/25/17 12:00 97.1 75 16 118/55 (76) 97 I/O 06/25/17 06/25/17 06/25/17 06/26/17 06/26/17 06/26/17 07:00 15:00 23:00 07:00 15:00 23:00 Intake Total 105 ml 1400 ml Balance 105 ml 1400 ml Intake Oral 1400 ml IV Total 100 ml Blood Product IV Normal Saline Flush 5 ml # Voids 2 2 # Bowel Movements 0 Result Diagram: 06/26/17 0635 06/25/17 1052 Imaging Last Impressions Lower Extremity MRI 06/25/17 0000 Signed Impressions: Service Date/Time: Sunday, June 25, 2017 13:23 - CONCLUSION: 1. Small pretibial abscess measuring up to 3 x 0.9 cm with surrounding cellulitis. No evidence for osteomyelitis. Sunil Templeton MD Lower Extremity Ultrasound 06/24/17 0000 Signed Impressions: Service Date/Time: Saturday, June 24, 2017 15:48 - CONCLUSION: Elongated fluid collection in the anterior soft tissues of the proximal right lower leg. Differential diagnosis includes abscess and hematoma. This finding can be further evaluated with MRI with and without contrast or CT with contrast. 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 Several areas were cauterized using the APC device. Some areas were difficult to visualize because of the aforementioned reasons above. The patient was given 1 unit of blood during the procedure. A/P Problem List: (1) GI bleed ICD Code: K92.2 - Gastrointestinal hemorrhage, unspecified Status: Acute Assessment and Plan 72 years old female Acute anemia secondary to GI bleeding S/P EGD 06/24= vascular ectasia S/P cautery - - Hct drop to 7.8- clinically feeling better - continue PPI/Sucralfate - GI ff - going for another EGD this pm - give another unit RBC now - ff H H Recent history of right leg peroneal DVT 06/19- recent right leg skin graft procedure by OP dermatology - first episode/provoked - for IVC filter- consult IR- - no OAC - due to GIB- appreciate input Right Abscess with cellulitis -spontaneously draining -reportedly Strep on culture as OP - appreciate ID input- antibiotic - switch to Ceftriaxone 06/25 - ff final sensitivity- here with gram + cocci in clusters - get GS consult- to evaluate for further need for I and D- wound is still draining copiously large amount of pus when squeezed Hypokalemia - replace po now and recheck in am -dyslipidemia/ hypothyroidism; resume home meds - when GI w/u completed. Discussed Condition With patient and significant other Problem Qualifiers (1) GI bleed: Qualified Codes: K92.2 - Gastrointestinal hemorrhage, unspecified Regina Vu MD Jun 26, 2017 10:03
[2017-06-26 10:04] LABS: PROTHROMBIN TIME - PATIENT 10.3 SEC (9.8-11.6)
[2017-06-26 10:16] LABS: BICARBONATE 26.7 MEQ/L (21.0-32.0); CALCIUM 8.5 MG/DL (8.5-10.1); CREATININE 0.72 MG/DL (0.50-1.00)
[2017-06-26] MEDS: PANTOPRAZOLE SODIUM 40 MG VIAL IV PUSH SCH (10:24)
--- NOTE | 2017-06-26 11:25 | HHI.IDPN ---
Subjective Subjective Remarks Patient is a 72-year-old female, recently diagnosed to have DVT, was started on Xarelto, and patient to the hospital any of fatigue, on and off dizziness and shortness of breath. She has noted some black stool but she didn't think much of it because she was on iron supplements. However on one of her bowel movement she noted some bright red blood. She denies any abdominal pain. She has known gastric vascular ectasia and follows a GI regularly. She was actually in her PCPs office when she had the bright red blood in her stool. She presented to the hospital, and her hemoglobin was down to 6. Patient had upper endoscopy and showed bleeding from her stomach. Patient has had history of multiple skin cancers including basal cell carcinoma as well as squamous cell carcinoma. She had multiple recurrent skin cancers on her right leg, requiring wide excision and it was squamous cell carcinoma. She had surgical resection as well as radiation treatment. She and up with extensive wounds, and subsequently underwent reconstructive surgery to her right leg with muscle flaps. It was apparently done about 4 years ago in [place]. All her wounds healed up, but her right leg has been swollen since. About 2 weeks ago she had an episode of fever and chills and body aches, and noted swelling on her right leg. She went her primary care physician, she was diagnosed to have cellulitis and was given Keflex. Her fever and chills went away. She had an ultrasound done on her right lower extremity which was done about a week after her doctor's visit and she was found to have a DVT. She was sent to the emergency room and I was June 19 and started on Xarelto. 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 Around the same time she noted an open wound developing on her upper anterior leg and started draining. Wound was cultured and it is growing strep agalactiae. Infectious disease consultation has been requested to evaluate the patient. Notes reviewed Temps ok MRI with abscess seen D/W Dr Vu Antibiotics Current Medications Medications (Trade) Dose Ordered Sig/Mook Route Start Time Stop Time Status Last Admin (Protonix Inj) 40 mg Q24H IV PUSH 06/24/17 09:00 06/26/17 10:24 Sodium Chloride 1,000 ml @ 30 mls/hr Q24H IV 06/23/17 12:00 06/24/17 21:58 (Albuterol Neb) 1.25 mg Q2HR NEB PRN NEB 06/23/17 13:00 (Symbicort 160-4.5 Mcg Inh) 2 puff BID INH 06/23/17 21:00 06/25/17 20:17 (Zofran Inj) 4 mg Q8H PRN IV PUSH 06/23/17 13:15 Lactated Ringer's 1,000 ml @ 30 mls/hr Q24H PRN IV 06/24/17 04:00 06/27/17 03:59 (Betadine 5% Antisepsis Kit) 1 applic [employer] PRN EACH NARE 06/24/17 04:00 06/27/17 03:59 (Chlorhexidine 2% Cloth) 3 pack [employer] PRN TOPICAL 06/24/17 04:00 06/27/17 03:59 (Carafate Liq) 1 gm TID NG 06/24/17 18:00 06/25/17 17:13 Ceftriaxone Sodium 2000 mg/ Sodium Chloride 100 ml @ 200 mls/hr Q24H IV 06/25/17 14:00 06/25/17 14:00 Lines PIV Past Medical History recently-diagnosed DVT Hypertension COPD Dyslipidemia Hypothyroidism. Skin CA - basal and squamous cell S/P XRT RLE for skin CA Past Surgical History Wide excision of skin CA Reconstructive surgery to RLE with muscle flap Allergies: Coded Allergies: bacitracin (Verified Allergy, Intermediate, rash, 06/23/17) polymyxin B (Verified Allergy, Intermediate, rash, 06/23/17) Uncoded Allergies: TAPE (Allergy, Intermediate, BLISTERS, 09/24/15) Objective . Vital Signs Date Time Temp Pulse Resp B/P (MAP) Pulse Ox O2 Delivery O2 Flow Rate FiO2 06/26/17 08:00 97.5 75 17 113/72 (86) 95 06/26/17 00:48 97.5 76 18 108/52 (70) 95 06/25/17 20:00 97.7 90 18 112/57 (75) 95 06/25/17 16:00 96.9 92 16 125/58 (80) 96 06/25/17 14:12 96.8 92 20 117/57 06/25/17 12:00 97.1 75 16 118/55 (76) 97 . Laboratory Tests Test 06/24/17 13:33 06/24/17 19:53 06/25/17 10:52 06/25/17 19:05 Hemoglobin 8.6 GM/DL 8.1 GM/DL 7.4 GM/DL 8.4 GM/DL Hematocrit 26.4 % 23.6 % 22.0 % 24.8 % White Blood Count 17.9 TH/MM3 Red Blood Count 2.57 MIL/MM3 Mean Corpuscular Volume 85.5 FL Mean Corpuscular Hemoglobin 28.9 PG Mean Corpuscular Hemoglobin Concent 33.8 % Red Cell Distribution Width 16.1 % Platelet Count 208 TH/MM3 Mean Platelet Volume 9.1 FL Neutrophils (%) (Auto) 84.2 % Lymphocytes (%) (Auto) 11.5 % Monocytes (%) (Auto) 4.0 % Eosinophils (%) (Auto) 0.0 % Basophils (%) (Auto) 0.3 % Neutrophils # (Auto) 15.1 TH/MM3 Lymphocytes # (Auto) 2.1 TH/MM3 Monocytes # (Auto) 0.7 TH/MM3 Eosinophils # (Auto) 0.0 TH/MM3 Basophils # (Auto) 0.1 TH/MM3 CBC Comment DIFF FINAL Differential Comment Test 06/26/17 06:35 Hemoglobin 7.7 GM/DL Hematocrit 22.6 % Laboratory Tests Test 06/24/17 17:13 06/25/17 10:52 06/26/17 09:22 Total Protein 5.7 GM/DL Alkaline Phosphatase 54 U/L Alanine Aminotransferase (ALT/SGPT) 13 U/L Total Bilirubin 0.4 MG/DL Anion Gap 8 MEQ/L 8 MEQ/L 6 MEQ/L Estimat Glomerular Filtration Rate 61 ML/MIN 68 ML/MIN 80 ML/MIN Protein Corrected Calcium 7.9 MG/DL Blood Urea Nitrogen 16 MG/DL 16 MG/DL Creatinine 0.83 MG/DL 0.72 MG/DL Random Glucose 138 MG/DL 91 MG/DL Calcium Level 7.6 MG/DL 8.5 MG/DL Sodium Level 142 MEQ/L 142 MEQ/L Potassium Level 3.1 MEQ/L 3.4 MEQ/L Chloride Level 108 MEQ/L 109 MEQ/L Carbon Dioxide Level 26.3 MEQ/L 26.7 MEQ/L Imaging Last Impressions Lower Extremity MRI 06/25/17 0000 Signed Impressions: Service Date/Time: Sunday, June 25, 2017 13:23 - CONCLUSION: 1. Small pretibial abscess measuring up to 3 x 0.9 cm with surrounding cellulitis. No evidence for osteomyelitis. Sunil Templeton MD Lower Extremity Ultrasound 06/24/17 0000 Signed Impressions: Service Date/Time: Saturday, June 24, 2017 15:48 - CONCLUSION: Elongated fluid collection in the anterior soft tissues of the proximal right lower leg. Differential diagnosis includes abscess and hematoma. This finding can be further evaluated with MRI with and without contrast or CT with contrast. Norberto Reece MD Physical Exam GENERAL: awake and alert, not in respiratory distress. SKIN: Warm and dry. No generalized rash, no ecchymoses and no evidence of embolic lesions. HEAD: Atraumatic. Normocephalic. No temporal wasting, or tenderness. EYES: [place] conjunctiva. No petechia or hemorrhage. Pupils equal, round and reactive to light. No scleral icterus. No injection or drainage. EARS, NOSE AND THROAT: Nose without bleeding or purulent nasal discharge. Mucous membranes pink and moist. No oral lesions noted. NECK: Trachea midline. Supple and not tender, no meningeal signs CARDIOVASCULAR: Regular rate and rhythm. No murmurs, rubs or gallops heard RESPIRATORY: Clear to auscultation. Breath sounds equal bilaterally. No rales , wheezing or rhonchi ABDOMEN: Soft, non-tender, nondistended. Bowel sounds present and normoactive. No guarding. No rebound. No organomegaly. EXTREMITIES: No clubbing, cyanosis. RLE larger compared to LLE. Has multiple scars in RLE from previous surgeries. There is a draining wound in upper anterior R leg that is about 1/2 inch size and distal to this is a small fluctuant area of about the same size. The wound is draining copious purulent fluid. There is improving erythema on the anterior R leg, no odor., Has R calf tenderness. Well perfused and warm. NEUROLOGICAL: Nonfocal PSYCHIATRIC: Normal affect, calm and cooperative. LINE: No evidence of infection Assessment & Plan Remarks IMPRESSION Cellulitis R leg with abscess - has had muscle flap to that leg - no hardware - C/S GBS UGIB from stomach, hx gastric vascular ectasia DVT RLE Known COPD RECOMMENDATION Surgery has been consulted OK for IVC filter Continue Rocephin Monitor progress D/W Mary Degroot MD Jun 26, 2017 11:25
[2017-06-26] MEDS ORDERED: IOHEXOL 350 MG/ML 100 ML BTL (for RAD DIAG) OTHER ONE (11:55)
[2017-06-26] MEDS ORDERED: DEXAMETHASONE SOD PHOS 4 MG/ML VIAL IV ONE (12:00)
[2017-06-26] MEDS ORDERED: SUCCINYLCHOLINE CHLORIDE 200 MG/10 ML VIAL IV ONE (12:00)
[2017-06-26] MEDS ORDERED: ESMOLOL HCL 100 MG/10 ML VIAL IV ONE (12:00)
[2017-06-26] MEDS ORDERED: LIDOCAINE HCL 1% PF 5 ML SYRINGE OTHER ONE (12:00)
[2017-06-26] MEDS ORDERED: ONDANSETRON HCL 4 MG/2 ML VIAL IV ONE (12:00)
[2017-06-26] MEDS ORDERED: PHENYLEPH/NS 1000 MCG/10 ML SYR IV ONE (12:00)
--- NOTE | 2017-06-26 12:33 | PD.RAD ---
Post Procedure Progress Note Pre Procedure Diagnosis: (1) DVT (deep venous thrombosis) (2) GI bleed Post Procedure Diagnosis: (1) DVT (deep venous thrombosis) (2) GI bleed Procedure Date: Jun 26, 2017 Supervising Radiologist: Dayton Iglesias Proceduralist/Assist: Ryan Landrum, RT(R), Sg Quezada, RT(R) Anesthesia: Local Plan of Activity Patient to Unit: ROPU Patient Condition: Good See PACS Report for procedural detail/treatment Dayton Iglesias MD Jun 26, 2017 12:33
--- NOTE | 2017-06-26 13:03 | PD.ONC.PN ---
Subjective Subjective Remarks Afebrile overnight. Patient resting in bed in nad. No complaints. Waiting to go downstairs for IVC filter placement. Late entry, patient seen at ~1115AM. Objective Data Date Time Temp Pulse Resp B/P (MAP) Pulse Ox O2 Delivery O2 Flow Rate FiO2 06/26/17 08:00 97.5 75 17 113/72 (86) 95 06/26/17 00:48 97.5 76 18 108/52 (70) 95 06/25/17 20:00 97.7 90 18 112/57 (75) 95 06/25/17 16:00 96.9 92 16 125/58 (80) 96 06/25/17 14:12 96.8 92 20 117/57 Result Diagram: 06/26/1735 06/26/17921 Laboratory Results Laboratory Tests Test 06/25/17 19:05 06/26/17 06:35 06/26/17 09:22 Hemoglobin 8.4 GM/DL 7.7 GM/DL Hematocrit 24.8 % 22.6 % Prothrombin Time 10.3 SEC Prothromb Time International Ratio 1.0 RATIO Blood Urea Nitrogen 16 MG/DL Creatinine 0.72 MG/DL Random Glucose 91 MG/DL Calcium Level 8.5 MG/DL Sodium Level 142 MEQ/L Potassium Level 3.4 MEQ/L Chloride Level 109 MEQ/L Carbon Dioxide Level 26.7 MEQ/L Anion Gap 6 MEQ/L Estimat Glomerular Filtration Rate 80 ML/MIN Administered Medications Medications (Trade) Dose Ordered Sig/Mook Route PRN Reason Start Time Stop Time Status Last Admin Dose Admin Pantoprazole Sodium (Protonix Inj) 40 mg Q24H IV PUSH 06/24/17 09:00 06/26/17 10:24 Sodium Chloride 1,000 ml @ 30 mls/hr Q24H IV 06/23/17 12:00 06/24/17 21:58 Budesonide/ Formoterol Fumarate (Symbicort 160-4.5 Mcg Inh) 2 puff BID INH 06/23/17 21:00 06/25/17 20:17 Sucralfate (Carafate Liq) 1 gm TID NG 06/24/17 18:00 06/25/17 17:13 Ceftriaxone Sodium 2000 mg/ Sodium Chloride 100 ml @ 200 mls/hr Q24H IV 06/25/17 14:00 06/25/17 14:00 Objective Remarks GENERAL: Pleasant elderly female, sitting up in bed in nad. SKIN: Warm and dry. HEAD: Normocephalic. EYES: No injection or drainage. NECK: Supple, trachea midline. CARDIOVASCULAR: Regular rate and rhythm RESPIRATORY: Breath sounds equal bilaterally. No accessory muscle use. GASTROINTESTINAL: Abdomen soft, mildly tender throughout, nondistended. EXTREMITIES: No cyanosis MUSCULOSKELETAL: Adequate muscle tone. NEUROLOGICAL: awake and alert, normal speech. moving extremities. Assessment/Plan Problem List: (1) GI bleed ICD Codes: K92.2 - Gastrointestinal hemorrhage, unspecified Status: Acute Plan: 06/26/17: monitor CBC, await IVC filter placement today. Hx/Workup: The patient had a skin graft placed on her right lower extremity for skin cancer. This got infected and she was treated with antibiotics. Due to swelling she had a Doppler ultrasound done at [facility] on June 19 that showed a nonocclusive right lower extremity DVT. The patient was placed on Eliquis but developed difficulty breathing and shortness of breath on exertion and came to the emergency room. It was noted that her hemoglobin dropped from 12.3 on June 19 to 6.6 on admission. Patient had an upper endoscopy this admission and active bleeding was found in the stomach due to the GAVE. (2) DVT (deep venous thrombosis) ICD Codes: I82.409 - Acute embolism and thrombosis of unspecified deep veins of unspecified lower extremity Plan: --scheduled for IVC filter placement, 06/26 --Diagnosed on ultrasound at [facility] on June 19 --Anticoagulation is contraindicated due to history of GAVE --Patient developed GI bleed on Eliquis Assessment 72-year-old female with history of GAVE recently started on anticoagulation who developed a GI bleed Attending Statement The exam, history, and the medical decision-making described in the above note were completed with the assistance of the mid-level provider. I reviewed and agree with the findings presented. I attest that I had a [id number] encounter with the patient on the same day, and personally performed and documented my assessment and findings in the medical record. Pt just came back from filter placement. Tolerated well. H/H dropped. Repeat EGD today No anticoag due to GI bleeding. MRI RLE = absess , no osteomyelitis. Problem Qualifiers (1) GI bleed: Qualified Codes: K92.2 - Gastrointestinal hemorrhage, unspecified Itzel Blanchard Jun 26, 2017 13:03 Evans Romo MD Jun 26, 2017 23:28
--- NOTE | 2017-06-26 13:14 | RADRPT ---
EXAM DATE/TIME: 06/26/2017 11:21 [facility] COMPARISON: No previous studies available for comparison. INDICATIONS : 72 year-old female with history of right lower extremity DVT and recurrent upper GI hemorrhage. IVC f ilter placement has been requested. Extensive discussion with the patient regarding risks and benefit s of IVC filters including significant risk for mechanical malfunction including migration, fracture and possible . Additionally, extensive discussion regarding retrievable versus permanent filter with the patient. Patient agrees with plan for permanent filter. MEDICAL HISTORY : Recently-diagnosed DVT Hypertension COPD Dyslipidemia Hypothyroidism SURGICAL HISTORY : Carpal tunnel surgery. Skin graft on the right leg. ENCOUNTER: Initial ACUITY: 4 - 6 days PAIN SCORE: 0/10 LOCATION: N/A FLUORO TIME: 2.8 minutes IMAGE SERIES: 3 ACCESS SITE: Right Internal jugular vein CONTRAST: 1.) 53 cc Omnipaque (iohexol) 350 TECH NOTE: Exam completed without sedation.DENISE RICHARDS MR#:[id number] DOB1/ Exam Dt/Desc: June 26 018VENOGRAM IVC W FILTER PLACEMENT PROCEDURE : 1. Ultrasound-guided venipuncture. 2. Inferior venacavogram. 3. Inferior vena cava filter placement. 4. Conscious sedation with continuous EKG and oximetry monitoring. The risks, benefits and alternatives to the procedure were explained and verbal and written consent w as obtained. The site was prepped in sterile fashion. Full sterile technique was used, including ca p, mask, sterile gloves and gown and a large sterile sheet. Hand hygiene and 2% chlorhexidine and/or betadine/alcohol prep was utilized per protocol for cutaneous antisepsis. Sterile gel and sterile p robe cover were utilized for ultrasound guidance. The skin and subcutaneous tissues were infiltrated with local anesthetic solution. With ultrasound and fluoroscopic guidance the targeted vein was punctured and a vascular sheath was p laced. Inferior venacavogram was performed to demonstrate level of renal veins. No caval thrombus was identified. The prescribed filter was deployed in the infrarenal inferior vena cava. Following deplo yment the filter was identified in good position. Conscious sedation was performed with the prescribed dosages and duration as above in the presence of an independent trained radiology nurse to assist in the monitoring of the patient. EKG and oximetry remained stable throughout the procedure. The patient tolerated the procedure well and there were n o complications. The patient was sent to post anesthesia recovery in stable condition. CONCLUSION: Uncomplicated inferior vena cava filter placement as above. Dayton Iglesias MD on June 26, 2017 at 12:57 Board Certified Radiologist. This report was verified electronically.
[2017-06-26] MEDS ORDERED: POTASSIUM CHLORIDE 10 MEQ CONTROLLED RELEASE TAB PO ONE (13:30)
[2017-06-26] MEDS: cefTRIAXone INJ 2,000 MG in SODIUM CHLORIDE 0.9% INJ 100 ML IV SCH (13:34)
--- NOTE | 2017-06-26 14:05 | PD.CONS ---
cc: Jordan Kerr MD [facility] Service General Surgery Consult Requested By Dr. Vu Reason for Consult Evaluate RLE abscess Primary Care Physician Rl Bridges MD History of Present Illness This is a 72 year old female with a past medical history of recent diagnosis of cellulitis and RLE DVT on Xarelto, anemia, gastric vascular ectasia, hypertension, dyslipidemia, hypothyroidism and COPD. The patient has had about a 10 day history of RLE redness and swelling. She was started on Keflex for RLE cellulitis and switched to Cipro when there was no improvement. She was then diagnosed with a RLE DVT and started on Xarelto. She comes to the ED for this admission due to bleeding form her rectum. Her admission hemoglobin was 6.6 and she has been transfused several units of packed red blood cells. The Xarelto was stopped. The patient had an EGD was done on June 24 which revealed active bleeding in the stomach and complete visualization was limited. A repeat EGD is planned for today. The patient had an IVF filter placed today. A General Surgery consultation has been requested for evaluation of a draining RLE abscess. Review of Systems Constitutional: COMPLAINS OF: Fever, DENIES: Change in appetite Endocrine: DENIES: Polydipsia, Polyuria, Polyphagia Eyes: DENIES: Diplopia, Eye inflammation Ears, nose, mouth, throat: DENIES: Hearing loss Respiratory: DENIES: Cough Cardiovascular: DENIES: Chest pain Gastrointestinal: COMPLAINS OF: Bloody stools, Nausea, DENIES: Abdominal pain Genitourinary: DENIES: Urinary frequency Musculoskeletal: DENIES: Joint pain Integumentary: COMPLAINS OF: Abnormal pigmentation (RLE redness ) Hematologic/lymphatic: DENIES: Bruising Immunologic/allergic: DENIES: Eczema Neurologic: DENIES: Abnormal gait, Headache, Localized weakness Psychiatric: DENIES: Confusion, Mood changes, Depression Past Family Social History Past Medical History RLE cellulitis RLE DVT Anemia Hypertension Dyslipidemia Hypothyroidism COPD Past Surgical History Carpal tunnel surgery Several excision of basal cell carcinoma to her BLE s/p skin grafts to radiated areas and eventually a muscle flap was done Reported Medications Cipro Ipratropium Neb Ferrous sulfate Xarelto (stopped) Pravastatin Losartan Citalopram Calcium Hydrochlorothiazide Advair Omeprazole Levothyroxine Vitamin B12 Centrum Flaxseed oil Allergies: Coded Allergies: bacitracin (Verified Allergy, Intermediate, rash, 06/26/17) polymyxin B (Verified Allergy, Intermediate, rash, 06/26/17) Uncoded Allergies: TAPE (Allergy, Intermediate, BLISTERS, 09/24/15) Active Ordered Medications Current Medications Medications (Trade) Dose Ordered Sig/Mook Route Start Time Stop Time Status Last Admin (Protonix Inj) 40 mg Q24H IV PUSH 06/24/17 09:00 06/26/17 10:24 Sodium Chloride 1,000 ml @ 30 mls/hr Q24H IV 06/23/17 12:00 06/24/17 21:58 (Albuterol Neb) 1.25 mg Q2HR NEB PRN NEB 06/23/17 13:00 (Symbicort 160-4.5 Mcg Inh) 2 puff BID INH 06/23/17 21:00 06/25/17 20:17 (Zofran Inj) 4 mg Q8H PRN IV PUSH 06/23/17 13:15 Lactated Ringer's 1,000 ml @ 30 mls/hr Q24H PRN IV 06/24/17 04:00 06/27/17 03:59 (Betadine 5% Antisepsis Kit) 1 applic [place] WIGS PRN EACH NARE 06/24/17 04:00 06/27/17 03:59 (Chlorhexidine 2% Cloth) 3 pack [place] WIGS PRN TOPICAL 06/24/17 04:00 06/27/17 03:59 (Carafate Liq) 1 gm TID NG 06/24/17 18:00 06/25/17 17:13 Ceftriaxone Sodium 2000 mg/ Sodium Chloride 100 ml @ 200 mls/hr Q24H IV 06/25/17 14:00 06/26/17 13:34 Family History Non contributory Social History Denies tobacco use + ETOH---socially; not daily Denies illicit drug use Physical Exam Vital Signs Vital Signs Date Time Temp Pulse Resp B/P (MAP) Pulse Ox O2 Delivery O2 Flow Rate FiO2 06/26/17 12:00 96.6 79 17 131/58 (82) 95 3/12/18 08:00 97.5 75 17 113/72 (86) 95 06/26/17 00:48 97.5 76 18 108/52 (70) 95 06/25/17 20:00 97.7 90 18 112/57 (75) 95 06/25/17 16:00 96.9 92 16 125/58 (80) 96 06/25/17 14:12 96.8 92 20 117/57 Physical Exam GENERAL: 72 year old female resting in bed in no acute distress. SKIN: LEFT leg: several area with well healed scars from excisions of skin lesions; RIGHT leg: mild redness to area; edema; +2 pitting edema more in ankles ; area just inferior or knee with draining pus---able to manual express drainage ; no further palpable fluid collection. HEAD: Atraumatic. Normocephalic. EYES: Pupils equal and round. No scleral icterus. No injection or drainage. ENT: No nasal bleeding or discharge. Mucous membranes pink and moist. NECK: Trachea midline. CARDIOVASCULAR: Regular rate and rhythm. RESPIRATORY: No accessory muscle use. Clear to auscultation. Breath sounds equal bilaterally. GASTROINTESTINAL: Abdomen soft, non-tender, nondistended. MUSCULOSKELETAL: Extremities without clubbing, cyanosis, or edema. No obvious deformities. NEUROLOGICAL: Awake and alert. No obvious cranial nerve deficits. Motor grossly within normal limits. Five out of 5 muscle strength in the arms and legs. Normal speech. PSYCHIATRIC: Appropriate mood and affect; insight and judgment normal. Laboratory Laboratory Tests Test 06/25/17 19:05 06/26/17 06:35 06/26/17 09:22 Hemoglobin 8.4 7.7 Hematocrit 24.8 22.6 Prothrombin Time 10.3 Prothromb Time International Ratio 1.0 Blood Urea Nitrogen 16 Creatinine 0.72 Random Glucose 91 Calcium Level 8.5 Sodium Level 142 Potassium Level 3.4 Chloride Level 109 Carbon Dioxide Level 26.7 Anion Gap 6 Estimat Glomerular Filtration Rate 80 Date/Time Source Procedure Growth Status 06/23/17 10:40 Wound Leg Gram Stain - Final Complete 06/23/17 10:40 Wound Culture - Final Group B Beta Strep Complete Result Diagram: 06/26/17 0635 06/26/17 0922 Assessment and Plan Assessment and Plan 72 year old female with GIB on OAC; DVT to RLE; draining RLE wound -Repeat EGD planned for today -Diet as tolerated -Will continue antibiotics -Start dressing changes--- Iodoform dressing changes BID and PRN -Okay from GS standpoint to shower between dressing changes -Not a very good surgical candidate to that area due to prior muscle flap -Thank you for this consult; We will continue to follow Discussed Condition With Dr. Kerr [facility] Attending Statement The exam, history, and the medical decision-making described in the above note were completed with the assistance of the mid-level provider. I reviewed and agree with the findings presented. I attest that I had a [id number] encounter with the patient on the same day, and personally performed and documented my assessment and findings in the medical record. patient with complex surgical history of right lower extremity resolving cellulitis and 2-3cm open area of draining abscess, no evidence of necrosis does not need surgical intervention at this time, will perform wound care, will follow Shaista Olguin/First Lauren BERNARD Jun 26, 2017 14:05 Jordan Kerr MD Jun 28, 2017 15:39
[2017-06-26] MEDS ORDERED: DO NOT ADM ANY ANTICOAGULANT DRUGS PRN (17:45)
[2017-06-26] MEDS ORDERED: *RESP: ALBUTEROL 2.5 MG/3 ML NEB (PRN) PERIprocedural Use ONLY NEB ONE (17:48)
--- NOTE | 2017-06-26 17:55 | PD.WCN.NOT ---
Wound Consult Description: Consult for WOUND MANAGEMENT of right LE Communicated with: CHAGO Lynne Recommendation: Follow up with patient on Monday06/27/17. Patient was off unit @1017 this am and is currently off unit @ 1754. Additional Information: Attempted to see patient 2x today, off unit both times. Will follow up with patient on Monday06/27/17. Meseret Ortiz [facility] Jun 26, 2017 17:55
--- NOTE | 2017-06-26 18:44 | MR ---
cc: Dougie Saba MD PROCEDURE: Esophagogastroduodenoscopy with cautery of gastric antral vacular ectasis ectasia that has been persistently bleeding. Photographs taken. No biopsy. PREMEDICATION: Administered by anesthesiology. Patient was intubated to protect the airway. MONITORING: Monitoring was accomplished with pulse oximeter, EKG, blood pressure monitor. PROCEDURE NOTE: After informed consent was obtained and the procedure, risks and benefits were explained, the patient was placed in the left lateral position after intubation. Video endoscope was inserted into the esophagus and then into the stomach. At the antral region, there was some oozing of bright red blood noted, much less than the prior endoscopic evaluation. Nonetheless, cautery was carried out with the APC device, obliterating the areas of oozing of blood. Endoscopic evaluation was essentially unchanged as before, otherwise. The esophagus was unremarkable. The duodenum was unremarkable. After several maneuvers were accomplished using the APC device, bleeding was seen to discontinue and no active oozing was noted. Photographs of post-cautery areas were obtained. The patient tolerated the procedure well. The scope was removed. She was extubated, vital signs were stable. IMPRESSION: This examination revealed persistent low-grade oozing of blood from gastric antral vacular ectasia. The area was re-cauterized a second time as better visualization was achieved on this exam as there was less blood. The patient tolerated this well. PLAN: Would continue Carafate therapy. Continue to monitor H and Hs. Advance her diet as tolerated. Hopefully, the patient will stabilize as she is off anticoagulation therapy as well. MD OLU Coe/LINDA , 05:38 PM , 06:42 PM
[2017-06-26] MEDS: SODIUM CHLOR 0.9% 1000 ML INJ 1,000 ML IV SCH (20:18)
[2017-06-27] VITALS: BP 103/51; PULSE 90; RESP 20; TEMP 97.5; O2SAT 94
[2017-06-27 01:05] VITALS: BP 116/57; PULSE 79; RESP 18; TEMP 97.6; O2SAT 94
[2017-06-27 08:00] VITALS: BP 118/66; PULSE 66; RESP 18; TEMP 97.3; O2SAT 98
[2017-06-27] MEDS: SUCRALFATE 1 GM/10 ML CUP NG SCH ×3 (08:45→17:28)
[2017-06-27] MEDS: BUDESONIDE-FORMOTEROL 160/4.5 MCG INHALER INH SCH ×2 (08:45→21:24)
[2017-06-27] MEDS: PANTOPRAZOLE SODIUM 40 MG VIAL IV PUSH SCH (08:45)
[2017-06-27 09:22] LABS: AUTOMATED NEUTROPHIL # 10.5 TH/MM3 (1.8-7.7); BASOPHIL # 0.1 TH/MM3 (0-0.2); BASOPHIL % 0.4 % (0.0-2.0); EOSINOPHIL % 0.3 % (0.0-4.0); HEMATOCRIT 27.1 % (35.0-46.0); HEMOGLOBIN 9.4 GM/DL (11.6-15.3); LYMPH % 10.6 % (9.0-44.0); LYMPHOCYTE # 1.3 TH/MM3 (1.0-4.8); MEAN CELL VOLUME 85.5 FL (80.0-100.0); MEAN CORPUSCULAR HEMOGLOBIN 29.8 PG (27.0-34.0); MEAN CORPUSCULAR HGB CONC 34.8 % (32.0-36.0); MEAN PLATELET VOLUME 9.7 FL (7.0-11.0); MONO % 3.1 % (0.0-8.0); MONOCYTE # 0.4 TH/MM3 (0-0.9); NEUT % 85.6 % (16.0-70.0); PLATELET COUNT 202 TH/MM3 (150-450); RED BLOOD COUNT 3.17 MIL/MM3 (4.00-5.30); RED CELL DISTRIBUTION WIDTH 16.3 % (11.6-17.2); WHITE BLOOD COUNT 12.3 TH/MM3 (4.0-11.0)
[2017-06-27 09:46] LABS: BICARBONATE 22.2 MEQ/L (21.0-32.0); CALCIUM 8.1 MG/DL (8.5-10.1); CREATININE 0.69 MG/DL (0.50-1.00)
--- NOTE | 2017-06-27 10:02 | HHI.PR ---
cc: Jordan Kerr MD Subjective Subjective Notes Resting in bed "I'm feeling good today!" Objective Vitals/I&O Vital Signs Date Time Temp Pulse Resp B/P (MAP) Pulse Ox O2 Delivery O2 Flow Rate FiO2 06/27/17 08:00 97.3 66 18 118/66 (83) 98 06/26/17 18:15 Nasal Cannula 2 Aerosol Mask 06/23/17 17:45 21 Labs Laboratory Tests Test 06/27/17 08:24 White Blood Count 12.3 Red Blood Count 3.17 Hemoglobin 9.4 Hematocrit 27.1 Mean Corpuscular Volume 85.5 Mean Corpuscular Hemoglobin 29.8 Mean Corpuscular Hemoglobin Concent 34.8 Red Cell Distribution Width 16.3 Platelet Count 202 Mean Platelet Volume 9.7 Neutrophils (%) (Auto) 85.6 Lymphocytes (%) (Auto) 10.6 Monocytes (%) (Auto) 3.1 Eosinophils (%) (Auto) 0.3 Basophils (%) (Auto) 0.4 Neutrophils # (Auto) 10.5 Lymphocytes # (Auto) 1.3 Monocytes # (Auto) 0.4 Eosinophils # (Auto) 0.0 Basophils # (Auto) 0.1 CBC Comment DIFF FINAL Differential Comment Hematology Comments Blood Urea Nitrogen 11 Creatinine 0.69 Random Glucose 111 Calcium Level 8.1 Sodium Level 142 Potassium Level 3.9 Chloride Level 109 Carbon Dioxide Level 22.2 Anion Gap 11 Estimat Glomerular Filtration Rate 84 Date/Time Source Procedure Growth Status 06/23/17 10:40 Wound Leg Gram Stain - Final Complete 06/23/17 10:40 Wound Culture - Final Group B Beta Strep Complete Cardiovascular: Regular Lungs: Clear Abdomen: Non-distended, Non-tender Extremities: Other (see below ) Narrative Exam LEFT leg: manually expressed about 2 cc of purulent drainage; redness decreased on exam today; packing placed A/P Assessment and Plan 72 year old female with GIB on OAC; DVT to RLE; draining RLE wound -S/p repeat EGD -Will continue antibiotics -Continue dressing changes--- Iodoform dressing changes BID and PRN -Okay from GS standpoint to shower between dressing changes Attending Statement The exam, history, and the medical decision-making described in the above note were completed with the assistance of the mid-level provider. I reviewed and agree with the findings presented. I attest that I had a [id number]-[id number] encounter with the patient on the same day, and personally performed and documented my assessment and findings in the medical record. wound clean, continue wound care, will follow ABX per ID Shaista Olguin/First Lauren BERNARD Jun 27, 2017 10:02 Jordan Kerr MD Jun 28, 2017 15:40
--- NOTE | 2017-06-27 10:10 | HHI.GIFU ---
Subjective Remarks Pt Alert NAD no complaints HB stable 9.4 reviewed EGD findings and therapy Objective Vitals I&O Vital Signs Date Time Temp Pulse Resp B/P (MAP) Pulse Ox O2 Delivery O2 Flow Rate FiO2 06/27/17 08:00 97.3 66 18 118/66 (83) 98 06/27/17 01:05 97.6 79 18 116/57 94 06/27/17 00:00 97.5 90 20 103/51 (68) 94 06/26/17 22:19 97.5 89 18 121/57 96 06/26/17 22:04 97.7 86 18 113/56 96 06/26/17 20:00 97.4 86 20 124/58 (80) 96 06/26/17 18:40 97.0 89 17 115/56 (75) 93 06/26/17 18:15 85 18 122/58 (79) 94 Nasal Cannula 2 Aerosol Mask 06/26/17 18:00 89 18 121/55 (77) 95 Nasal Cannula 2 Aerosol Mask 06/26/17 17:44 98.7 92 22 130/60 (83) 89 Nasal Cannula 2 06/26/17 12:00 96.6 79 17 131/58 (82) 95 I/O 06/26/17 06/26/17 06/26/17 06/27/17 06/27/17 06/27/17 07:00 15:00 23:00 07:00 15:00 23:00 Intake Total 100 ml 790 ml 640 ml Balance 100 ml 790 ml 640 ml Intake Oral 240 ml 240 ml IV Total 100 ml 150 ml Packed Cells 400 ml Other 400 ml # Voids 3 Laboratory Laboratory Tests Test 06/27/17 08:24 White Blood Count 12.3 Red Blood Count 3.17 Hemoglobin 9.4 Hematocrit 27.1 Mean Corpuscular Volume 85.5 Mean Corpuscular Hemoglobin 29.8 Mean Corpuscular Hemoglobin Concent 34.8 Red Cell Distribution Width 16.3 Platelet Count 202 Mean Platelet Volume 9.7 Neutrophils (%) (Auto) 85.6 Lymphocytes (%) (Auto) 10.6 Monocytes (%) (Auto) 3.1 Eosinophils (%) (Auto) 0.3 Basophils (%) (Auto) 0.4 Neutrophils # (Auto) 10.5 Lymphocytes # (Auto) 1.3 Monocytes # (Auto) 0.4 Eosinophils # (Auto) 0.0 Basophils # (Auto) 0.1 CBC Comment DIFF FINAL Differential Comment Hematology Comments Blood Urea Nitrogen 11 Creatinine 0.69 Random Glucose 111 Calcium Level 8.1 Sodium Level 142 Potassium Level 3.9 Chloride Level 109 Carbon Dioxide Level 22.2 Anion Gap 11 Estimat Glomerular Filtration Rate 84 Date/Time Source Procedure Growth Status 06/23/17 10:40 Wound Leg Gram Stain - Final Complete 06/23/17 10:40 Wound Culture - Final Group B Beta Strep Complete Physical Exam H CHEST: Chest is clear to auscultation and percussion. CARDIAC: Regular rate and rhythm with no murmur gallop or rubs. ABDOMEN: Soft, nondistended, nontender; bs pos EXTREMITIES: No clubbing, cyanosis, or edema. SKIN: Normal; no rash; no jaundice. Assessment and Plan Assessment: (1) GAVE (gastric antral vascular ectasia) ICD Codes: K31.819 - Angiodysplasia of stomach and duodenum without bleeding (2) GI bleed ICD Codes: K92.2 - Gastrointestinal hemorrhage, unspecified Status: Acute (3) Anticoagulated ICD Codes: Z79.01 - jail (current) use of anticoagulants Status: Acute Plan STable for DC w me ....F/u Dr Jefferson in 3 weeks .... HOLD xarelto rx .....continue carafate 1 gm tid Problem Qualifiers (1) GI bleed: Qualified Codes: K92.2 - Gastrointestinal hemorrhage, unspecified Dougie Saba MD Jun 27, 2017 10:10
--- NOTE | 2017-06-27 11:04 | PD.WCN.NOT ---
Wound Consult Description: Consult for WOUND MANAGEMENT of right LE Communicated with: JOANA Olguin Patient Recommendation: Follow dressing change orders placed for nursing by JOANA Olguin for 1/4" Iodoform packing BID. Additional Information: Patient seen on for followup of wound care consult of right lower extremity. Patient had been seen by JOANA Olguin this am and had her dressing changed. Wound Care is available if needed, however there are nursing orders in place for BID dressing changes, therefore we will not be seeing or following this patient and will defer to surgery. [facility]ret Ortiz [facility] Jun 27, 2017 11:04
--- NOTE | 2017-06-27 11:08 | HHI.IDPN ---
Subjective Subjective Remarks Patient is a 72-year-old female, recently diagnosed to have DVT, was started on Xarelto, and patient to the hospital any of fatigue, on and off dizziness and shortness of breath. She has noted some black stool but she didn't think much of it because she was on iron supplements. However on one of her bowel movement she noted some bright red blood. She denies any abdominal pain. She has known gastric vascular ectasia and follows a GI regularly. She was actually in her PCPs office when she had the bright red blood in her stool. She presented to the hospital, and her hemoglobin was down to 6. Patient had upper endoscopy and showed bleeding from her stomach. Patient has had history of multiple skin cancers including basal cell carcinoma as well as squamous cell carcinoma. She had multiple recurrent skin cancers on her right leg, requiring wide excision and it was squamous cell carcinoma. She had surgical resection as well as radiation treatment. She and up with extensive wounds, and subsequently underwent reconstructive surgery to her right leg with muscle flaps. It was apparently done about 4 years ago in [place]. All her wounds healed up, but her right leg has been swollen since. About 2 weeks ago she had an episode of fever and chills and body aches, and noted swelling on her right leg. She went her primary care physician, she was diagnosed to have cellulitis and was given Keflex. Her fever and chills went away. She had an ultrasound done on her right lower extremity which was done about a week after her doctor's visit and she was found to have a DVT. She was sent to the emergency room and I was June 19 and started on Xarelto. 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 Around the same time she noted an open wound developing on her upper anterior leg and started draining. Wound was cultured and it is growing strep agalactiae. Infectious disease consultation has been requested to evaluate the patient. Notes reviewed D/W RN Temnorma ok Feels better S/P IVC filter placement EGD done yesterday had cautery of oozing ectasia in stomach Surgery notes reviewed - started packing of the the open wound Antibiotics Rocephin Current Medications Medications (Trade) Dose Ordered Sig/Mook Route Start Time Stop Time Status Last Admin (Protonix Inj) 40 mg Q24H IV PUSH 06/24/17 09:00 06/27/17 08:45 Sodium Chloride 1,000 ml @ 30 mls/hr Q24H IV 06/23/17 12:00 06/26/17 20:18 (Albuterol Neb) 1.25 mg Q2HR NEB PRN NEB 06/23/17 13:00 (Symbicort 160-4.5 Mcg Inh) 2 puff BID INH 06/23/17 21:00 06/27/17 08:45 (Zofran Inj) 4 mg Q8H PRN IV PUSH 06/23/17 13:15 (Carafate Liq) 1 gm TID NG 06/24/17 18:00 06/27/17 08:45 Ceftriaxone Sodium 2000 mg/ Sodium Chloride 100 ml @ 200 mls/hr Q24H IV 06/25/17 14:00 06/26/17 13:34 Miscellaneous Information ALL NURSING DEPARTME... UNSCH PRN .XX 06/26/17 17:45 06/27/17 17:44 Lines PIV Past Medical History recently-diagnosed DVT Hypertension COPD Dyslipidemia Hypothyroidism. Skin CA - basal and squamous cell S/P XRT RLE for skin CA Past Surgical History Wide excision of skin CA Reconstructive surgery to RLE with muscle flap Allergies: Coded Allergies: bacitracin (Verified Allergy, Intermediate, rash, 06/26/17) polymyxin B (Verified Allergy, Intermediate, rash, 06/26/17) Uncoded Allergies: TAPE (Allergy, Intermediate, BLISTERS, 09/24/15) Objective . Vital Signs Date Time Temp Pulse Resp B/P (MAP) Pulse Ox O2 Delivery O2 Flow Rate FiO2 06/27/17 08:00 97.3 66 18 118/66 (83) 98 06/27/17 01:05 97.6 79 18 116/57 94 06/27/17 00:00 97.5 90 20 103/51 (68) 94 06/26/17 22:19 97.5 89 18 121/57 96 06/26/17 22:04 97.7 86 18 113/56 96 06/26/17 20:00 97.4 86 20 124/58 (80) 96 06/26/17 18:40 97.0 89 17 115/56 (75) 93 06/26/17 18:15 85 18 122/58 (79) 94 Nasal Cannula 2 Aerosol Mask 06/26/17 18:00 89 18 121/55 (77) 95 Nasal Cannula 2 Aerosol Mask 06/26/17 17:44 98.7 92 22 130/60 (83) 89 Nasal Cannula 2 06/26/17 12:00 96.6 79 17 131/58 (82) 95 . Laboratory Tests Test 06/25/17 19:05 06/26/17 06:35 06/27/17 08:24 Hemoglobin 8.4 GM/DL 7.7 GM/DL 9.4 GM/DL Hematocrit 24.8 % 22.6 % 27.1 % White Blood Count 12.3 TH/MM3 Red Blood Count 3.17 MIL/MM3 Mean Corpuscular Volume 85.5 FL Mean Corpuscular Hemoglobin 29.8 PG Mean Corpuscular Hemoglobin Concent 34.8 % Red Cell Distribution Width 16.3 % Platelet Count 202 TH/MM3 Mean Platelet Volume 9.7 FL Neutrophils (%) (Auto) 85.6 % Lymphocytes (%) (Auto) 10.6 % Monocytes (%) (Auto) 3.1 % Eosinophils (%) (Auto) 0.3 % Basophils (%) (Auto) 0.4 % Neutrophils # (Auto) 10.5 TH/MM3 Lymphocytes # (Auto) 1.3 TH/MM3 Monocytes # (Auto) 0.4 TH/MM3 Eosinophils # (Auto) 0.0 TH/MM3 Basophils # (Auto) 0.1 TH/MM3 CBC Comment DIFF FINAL Differential Comment Hematology Comments Laboratory Tests Test 06/26/17 09:22 06/27/17 08:24 Blood Urea Nitrogen 16 MG/DL 11 MG/DL Creatinine 0.72 MG/DL 0.69 MG/DL Random Glucose 91 MG/DL 111 MG/DL Calcium Level 8.5 MG/DL 8.1 MG/DL Sodium Level 142 MEQ/L 142 MEQ/L Potassium Level 3.4 MEQ/L 3.9 MEQ/L Chloride Level 109 MEQ/L 109 MEQ/L Carbon Dioxide Level 26.7 MEQ/L 22.2 MEQ/L Anion Gap 6 MEQ/L 11 MEQ/L Estimat Glomerular Filtration Rate 80 ML/MIN 84 ML/MIN Imaging Last Impressions Lower Extremity MRI 06/25/17 0000 Signed Impressions: Service Date/Time: Sunday, June 25, 2017 13:23 - CONCLUSION: 1. Small pretibial abscess measuring up to 3 x 0.9 cm with surrounding cellulitis. No evidence for osteomyelitis. Sunil Tepmleton MD Lower Extremity Ultrasound 06/24/17 0000 Signed Impressions: Service Date/Time: Saturday, June 24, 2017 15:48 - CONCLUSION: Elongated fluid collection in the anterior soft tissues of the proximal right lower leg. Differential diagnosis includes abscess and hematoma. This finding can be further evaluated with MRI with and without contrast or CT with contrast. Norberto Reece MD Physical Exam GENERAL: awake and alert, not in respiratory distress. SKIN: Warm and dry. No generalized rash, no ecchymoses and no evidence of embolic lesions. HEAD: Atraumatic. Normocephalic. No temporal wasting, or tenderness. EYES: [place] conjunctiva. No petechia or hemorrhage. Pupils equal, round and reactive to light. No scleral icterus. No injection or drainage. EARS, NOSE AND THROAT: Nose without bleeding or purulent nasal discharge. Mucous membranes pink and moist. No oral lesions noted. NECK: Trachea midline. Supple and not tender, no meningeal signs. Incision look ok CARDIOVASCULAR: Regular rate and rhythm. No murmurs, rubs or gallops heard RESPIRATORY: Clear to auscultation. Breath sounds equal bilaterally. No rales , wheezing or rhonchi ABDOMEN: Soft, non-tender, nondistended. Bowel sounds present and normoactive. No guarding. No rebound. No organomegaly. EXTREMITIES: No clubbing, cyanosis. RLE - erythema almost gone, swelling better; has iodoform packing in place. NEUROLOGICAL: Nonfocal PSYCHIATRIC: Normal affect, calm and cooperative. LINE: No evidence of infection Assessment & Plan Remarks IMPRESSION Cellulitis R leg with abscess - has had muscle flap to that leg - no hardware - C/S GBS UGIB from stomach, hx gastric vascular ectasia DVT RLE Known COPD RECOMMENDATION Continue Rocephin If stable, possibly change to oral Abx tomorrow - Amoxicillin 500 TID x 10 days Monitor progress D/W RN Explained plan to the patient Mary Keen MD Jun 27, 2017 11:07
--- NOTE | 2017-06-27 11:51 | PD.ONC.PN ---
Subjective Subjective Remarks Afebrile overnight. Patient resting in bed in nad. No complaints. tolerated IVC filter placement yesterday. Objective Data Result Diagram: 06/27/1782306/27/17823 Objective Remarks GENERAL: Pleasant elderly female, upright in bed with friend at bedside in nad. SKIN: Warm and dry. bandage, right neck is c/d/i. HEAD: Normocephalic. EYES: No injection or drainage. NECK: Supple, trachea midline. CARDIOVASCULAR: Regular rate and rhythm RESPIRATORY: Breath sounds equal bilaterally. No accessory muscle use. GASTROINTESTINAL: Abdomen soft, non-tender, no masses EXTREMITIES: No cyanosis MUSCULOSKELETAL: Adequate muscle tone. NEUROLOGICAL: no obvious focal deficit. Assessment/Plan Problem List: (1) DVT (deep venous thrombosis) ICD Codes: I82.409 - Acute embolism and thrombosis of unspecified deep veins of unspecified lower extremity Plan: 06/27/17: s/p IVC placement yesterday. Hematology will sign off. please call or reconsult if needed. 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 This got infected and she was treated with antibiotics. Due to swelling she had a Doppler ultrasound done at [facility] on June 19 that showed a nonocclusive right lower extremity DVT. The patient was placed on Eliquis but developed difficulty breathing and shortness of breath on exertion and came to the emergency room. It was noted that her hemoglobin dropped from 12.3 on June 19 to 6.6 on admission. Patient had an upper endoscopy this admission and active bleeding was found in the stomach due to the GAVE. Assessment 72-year-old female with history of GAVE recently started on anticoagulation who developed a GI bleed Attending Statement The exam, history, and the medical decision-making described in the above note were completed with the assistance of the mid-level provider. I reviewed and agree with the findings presented. I attest that I had a [id number] encounter with the patient on the same day, and personally performed and documented my assessment and findings in the medical record. NO C/O Anxious to go home. S/P ivc filter Sign off avialble prn. Problem Qualifiers (1) GI bleed: Qualified Codes: K92.2 - Gastrointestinal hemorrhage, unspecified Itzel Blanchard Jun 27, 2017 11:51 Evans Romo MD Jun 27, 2017 23:05
[2017-06-27 12:00] VITALS: BP 167/72; PULSE 97; RESP 20; TEMP 97.9; O2SAT 92
[2017-06-27] MEDS ORDERED: PHARMACY ORDERED LAB ONE (13:45)
--- NOTE | 2017-06-27 14:52 | HHI.PR ---
Subjective Remarks The patient felt great and wanted to go home soon. She says she has some shortness of breath following the procedure yesterday but feels like she is breathing normal now. Her family was at the bedside. Their questions were answered. The patient does endorse some constipation. Discussed with nursing. Objective Vitals Vital Signs Date Time Temp Pulse Resp B/P (MAP) Pulse Ox O2 Delivery O2 Flow Rate FiO2 06/27/17 08:00 97.3 66 18 118/66 (83) 98 06/27/17 01:05 97.6 79 18 116/57 94 06/27/17 00:00 97.5 90 20 103/51 (68) 94 06/26/17 22:19 97.5 89 18 121/57 96 06/26/17 22:04 97.7 86 18 113/56 96 06/26/17 20:00 97.4 86 20 124/58 (80) 96 06/26/17 18:40 97.0 89 17 115/56 (75) 93 06/26/17 18:15 85 18 122/58 (79) 94 Nasal Cannula 2 Aerosol Mask 06/26/17 18:00 89 18 121/55 (77) 95 Nasal Cannula 2 Aerosol Mask 06/26/17 17:44 98.7 92 22 130/60 (83) 89 Nasal Cannula 2 I/O 06/26/17 06/26/17 06/26/17 06/27/17 06/27/17 06/27/17 07:00 15:00 23:00 07:00 15:00 23:00 Intake Total 100 ml 790 ml 640 ml Balance 100 ml 790 ml 640 ml Intake Oral 240 ml 240 ml IV Total 100 ml 150 ml Packed Cells 400 ml Other 400 ml # Voids 3 Result Diagram: 06/27/17 0824 06/27/17 0824 Imaging Last Impressions IVC Filter Placement X-Ray 06/26/17 1252 Signed Impressions: Service Date/Time: Monday, June 26, 2017 11:21 - CONCLUSION: Uncomplicated inferior vena cava filter placement as above. Dayton Iglesias MD Lower Extremity MRI 06/25/17 0000 Signed Impressions: Service Date/Time: Sunday, June 25, 2017 13:23 - CONCLUSION: 1. Small pretibial abscess measuring up to 3 x 0.9 cm with surrounding cellulitis. No evidence for osteomyelitis. Sunil Templeton MD Lower Extremity Ultrasound 06/24/17 0000 Signed Impressions: Service Date/Time: Saturday, June 24, 2017 15:48 - CONCLUSION: Elongated fluid collection in the anterior soft tissues of the proximal right lower leg. Differential diagnosis includes abscess and hematoma. This finding can be further evaluated with MRI with and without contrast or CT with contrast. Norberto Reece MD Objective Remarks Gen: NAD. HEENT: anicteric. Lungs: clear. Cardiac: regular rhythm. GI: abdomen soft, nontender, good bowel sounds. Extremities: right LE with bandage in place, bilateral LE edema 1-2+. Neuro: No gross deficits. Psych: Mood and affect appropriate. 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 Several areas were cauterized using the APC device. Some areas were difficult to visualize because of the aforementioned reasons above. The patient was given 1 unit of blood during the procedure. Medications and IVs Current Medications Medications (Trade) Dose Ordered Sig/Mook Route Start Time Stop Time Status Last Admin (Protonix Inj) 40 mg Q24H IV PUSH 06/24/17 09:00 06/27/17 08:45 Sodium Chloride 1,000 ml @ 30 mls/hr Q24H IV 06/23/17 12:00 06/26/17 20:18 (Albuterol Neb) 1.25 mg Q2HR NEB PRN NEB 06/23/17 13:00 (Symbicort 160-4.5 Mcg Inh) 2 puff BID INH 06/23/17 21:00 06/27/17 08:45 (Zofran Inj) 4 mg Q8H PRN IV PUSH 06/23/17 13:15 (Carafate Liq) 1 gm TID NG 06/24/17 18:00 06/27/17 12:02 Ceftriaxone Sodium 2000 mg/ Sodium Chloride 100 ml @ 200 mls/hr Q24H IV 06/25/17 14:00 06/26/17 13:34 Miscellaneous Information ALL NURSING DEPARTME... UNSCH PRN .XX 06/26/17 17:45 06/27/17 17:44 A/P Problem List: (1) GI bleed ICD Code: K92.2 - Gastrointestinal hemorrhage, unspecified Status: Acute Assessment and Plan Acute anemia secondary to GI bleeding S/P EGD 06/24= vascular ectasia S/P cautery. S/p repeat EGD 06/26. S/p transfusion. - follow CBC and transfuse as needed. - continue PPI/Sucralfate. - follow up with GI. Recent history of right leg peroneal DVT 06/19- recent right leg skin graft procedure by [facility] dermatology First episode/provoked.S/p IVC filter by IR. - no OAC - due to GIB- appreciate input. Right Abscess with cellulitis Spontaneously draining. GBS growing in culture. - appreciate ID input- antibiotic - switch to Ceftriaxone 06/25. Possible transition to amoxicillin x 10 days upon discharge. - continue dressing changes per surgery. Recommendations appreciated. Hypokalemia Improved. - follow BMP. PPx: IVC filter Discharge Planning Hopefully d/c home in AM if ID clears pt. Problem Qualifiers (1) GI bleed: Qualified Codes: K92.2 - Gastrointestinal hemorrhage, unspecified Toni Falcon DO Jun 27, 2017 14:52
[2017-06-27] MEDS: cefTRIAXone INJ 2,000 MG in SODIUM CHLORIDE 0.9% INJ 100 ML IV SCH (15:06)
[2017-06-27 16:00] VITALS: BP 127/69; PULSE 89; RESP 18; TEMP 98.2; O2SAT 94
[2017-06-27 20:00] VITALS: BP 127/58; PULSE 87; RESP 18; TEMP 96.5; O2SAT 93
[2017-06-28] VITALS: BP 110/54; PULSE 85; RESP 18; TEMP 97.3; O2SAT 91
[2017-06-28] MEDS: SODIUM CHLOR 0.9% 1000 ML INJ 1,000 ML IV SCH (03:45)
[2017-06-28 07:51] LABS: HEMATOCRIT 29.7 % (35.0-46.0); HEMOGLOBIN 9.9 GM/DL (11.6-15.3); MEAN CORPUSCULAR HEMOGLOBIN 29.2 PG (27.0-34.0); MEAN CORPUSCULAR HGB CONC 33.5 % (32.0-36.0); MEAN PLATELET VOLUME 9.2 FL (7.0-11.0); PLATELET COUNT 242 TH/MM3 (150-450); RED BLOOD COUNT 3.41 MIL/MM3 (4.00-5.30); RED CELL DISTRIBUTION WIDTH 17.4 % (11.6-17.2); WHITE BLOOD COUNT 10.2 TH/MM3 (4.0-11.0)
[2017-06-28 08:00] VITALS: BP 129/62; PULSE 69; RESP 18; TEMP 96.9; O2SAT 93
[2017-06-28 08:11] LABS: BICARBONATE 23.1 MEQ/L (21.0-32.0); CALCIUM 8.4 MG/DL (8.5-10.1); CREATININE 0.97 MG/DL (0.50-1.00)
[2017-06-28] MEDS: SUCRALFATE 1 GM/10 ML CUP NG SCH ×2 (10:41→13:33)
[2017-06-28] MEDS: PANTOPRAZOLE SODIUM 40 MG VIAL IV PUSH SCH (10:41)
[2017-06-28] MEDS: BUDESONIDE-FORMOTEROL 160/4.5 MCG INHALER INH SCH (10:41)
[2017-06-28] MEDS ORDERED: DOCUSATE SODIUM 50 MG/SENNA 8.6 MG TAB PO SCH (11:15)
[2017-06-28] MEDS ORDERED: POLYETHYLENE GLYCOL 17 GM PKG PO SCH (11:15)
[2017-06-28] MEDS ORDERED: LEVOTHYROXINE SODIUM 75 MCG TAB PO SCH (11:45)
[2017-06-28] MEDS ORDERED: LOSARTAN 25 MG TAB PO SCH (11:45)
[2017-06-28] MEDS ORDERED: FERROUS SULFATE 325 MG (65 MG ELEMENTAL IRON) TAB PO SCH (11:45)
[2017-06-28] MEDS ORDERED: PRAVASTATIN SOD 40 MG TAB PO SCH (11:45)
[2017-06-28] MEDS ORDERED: CITALOPRAM HYDROBROMIDE 40 MG TAB PO SCH (11:45)
[2017-06-28 12:00] VITALS: BP 135/64; PULSE 84; RESP 19; TEMP 98.2; O2SAT 93
--- NOTE | 2017-06-28 12:58 | HHI.IDPN ---
Subjective Subjective Remarks Patient is a 72-year-old female, recently diagnosed to have DVT, was started on Xarelto, and patient to the hospital any of fatigue, on and off dizziness and shortness of breath. She has noted some black stool but she didn't think much of it because she was on iron supplements. However on one of her bowel movement she noted some bright red blood. She denies any abdominal pain. She has known gastric vascular ectasia and follows a GI regularly. She was actually in her PCPs office when she had the bright red blood in her stool. She presented to the hospital, and her hemoglobin was down to 6. Patient had upper endoscopy and showed bleeding from her stomach. Patient has had history of multiple skin cancers including basal cell carcinoma as well as squamous cell carcinoma. She had multiple recurrent skin cancers on her right leg, requiring wide excision and it was squamous cell carcinoma. She had surgical resection as well as radiation treatment. She and up with extensive wounds, and subsequently underwent reconstructive surgery to her right leg with muscle flaps. It was apparently done about 4 years ago in [place]. All her wounds healed up, but her right leg has been swollen since. About 2 weeks ago she had an episode of fever and chills and body aches, and noted swelling on her right leg. She went her primary care physician, she was diagnosed to have cellulitis and was given Keflex. Her fever and chills went away. She had an ultrasound done on her right lower extremity which was done about a week after her doctor's visit and she was found to have a DVT. She was sent to the emergency room and I was June 19 and started on Xarelto. In the meantime she had a follow-up with her shipping support who sees her regularly and she was changed from Keflex to Cipro. Around the same time she noted an open wound developing on her upper anterior leg and started draining. Wound was cultured and it is growing strep agalactiae. Infectious disease consultation has been requested to evaluate the patient. Notes reviewed Temps ok Had some SOB today Not coughing No CP S/P IVC filter placement EGD done yesterday had cautery of oozing ectasia in stomach Antibiotics Rocephin Current Medications Medications (Trade) Dose Ordered Sig/Mook Route Start Time Stop Time Status Last Admin (Protonix Inj) 40 mg Q24H IV PUSH 06/24/17 09:00 06/28/17 10:41 (Albuterol Neb) 1.25 mg Q2HR NEB PRN NEB 06/23/17 13:00 (Symbicort 160-4.5 Mcg Inh) 2 puff BID INH 06/23/17 21:00 06/28/17 10:41 (Zofran Inj) 4 mg Q8H PRN IV PUSH 06/23/17 13:15 (Carafate Liq) 1 gm TID NG 06/24/17 18:00 06/28/17 10:41 (Miralax) 17 gm DAILY PO 06/28/17 11:15 (Kary-Colace) 1 tab BID PO 06/28/17 11:15 (CeleXA) 40 mg DAILY PO 06/28/17 11:45 (Ferrous Sulfate) 325 mg DAILY PO 06/28/17 11:45 (Synthroid) 75 mcg DAILY@0600 PO 06/28/17 11:45 (Cozaar) 25 mg DAILY PO 06/28/17 11:45 (Pravachol) 40 mg DAILY PO 06/28/17 11:45 (Trimox) 500 mg TID PO 06/28/17 13:00 07/08/17 12:59 UNV Lines PIV Past Medical History recently-diagnosed DVT Hypertension COPD Dyslipidemia Hypothyroidism. Skin CA - basal and squamous cell S/P XRT RLE for skin CA Past Surgical History Wide excision of skin CA Reconstructive surgery to RLE with muscle flap Allergies: Coded Allergies: bacitracin (Verified Allergy, Intermediate, rash, 06/26/17) polymyxin B (Verified Allergy, Intermediate, rash, 06/26/17) Uncoded Allergies: TAPE (Allergy, Intermediate, BLISTERS, 09/24/15) Objective . Vital Signs Date Time Temp Pulse Resp B/P (MAP) Pulse Ox O2 Delivery O2 Flow Rate FiO2 06/28/17 12:00 98.2 84 19 135/64 (87) 93 06/28/17 08:00 96.9 69 18 129/62 (84) 93 06/28/17 00:00 97.3 85 18 110/54 (72) 91 06/27/17 20:00 96.5 87 18 127/58 (81) 93 06/27/17 16:00 98.2 89 18 127/69 (88) 94 . Laboratory Tests Test 06/27/17 08:24 06/28/17 07:24 White Blood Count 12.3 TH/MM3 10.2 TH/MM3 Red Blood Count 3.17 MIL/MM3 3.41 MIL/MM3 Hemoglobin 9.4 GM/DL 9.9 GM/DL Hematocrit 27.1 % 29.7 % Mean Corpuscular Volume 85.5 FL 87.0 FL Mean Corpuscular Hemoglobin 29.8 PG 29.2 PG Mean Corpuscular Hemoglobin Concent 34.8 % 33.5 % Red Cell Distribution Width 16.3 % 17.4 % Platelet Count 202 TH/MM3 242 TH/MM3 Mean Platelet Volume 9.7 FL 9.2 FL Neutrophils (%) (Auto) 85.6 % Lymphocytes (%) (Auto) 10.6 % Monocytes (%) (Auto) 3.1 % Eosinophils (%) (Auto) 0.3 % Basophils (%) (Auto) 0.4 % Neutrophils # (Auto) 10.5 TH/MM3 Lymphocytes # (Auto) 1.3 TH/MM3 Monocytes # (Auto) 0.4 TH/MM3 Eosinophils # (Auto) 0.0 TH/MM3 Basophils # (Auto) 0.1 TH/MM3 CBC Comment DIFF FINAL Differential Comment Hematology Comments Laboratory Tests Test 06/27/17 08:24 06/28/17 07:24 Blood Urea Nitrogen 11 MG/DL 13 MG/DL Creatinine 0.69 MG/DL 0.97 MG/DL Random Glucose 111 MG/DL 93 MG/DL Calcium Level 8.1 MG/DL 8.4 MG/DL Sodium Level 142 MEQ/L 143 MEQ/L Potassium Level 3.9 MEQ/L 3.6 MEQ/L Chloride Level 109 MEQ/L 110 MEQ/L Carbon Dioxide Level 22.2 MEQ/L 23.1 MEQ/L Anion Gap 11 MEQ/L 10 MEQ/L Estimat Glomerular Filtration Rate 84 ML/MIN 57 ML/MIN Magnesium Level 2.0 MG/DL Imaging Last Impressions Lower Extremity MRI 06/25/17 0000 Signed Impressions: Service Date/Time: Sunday, June 25, 2017 13:23 - CONCLUSION: 1. Small pretibial abscess measuring up to 3 x 0.9 cm with surrounding cellulitis. No evidence for osteomyelitis. Sunil Templeton MD Lower Extremity Ultrasound 06/24/17 0000 Signed Impressions: Service Date/Time: Saturday, June 24, 2017 15:48 - CONCLUSION: Elongated fluid collection in the anterior soft tissues of the proximal right lower leg. Differential diagnosis includes abscess and hematoma. This finding can be further evaluated with MRI with and without contrast or CT with contrast. Norberto Reece MD Physical Exam GENERAL: awake and alert, NAD. On RA SKIN: Warm and dry. No generalized rash, no ecchymoses and no evidence of embolic lesions. HEAD: Atraumatic. Normocephalic. No temporal wasting, or tenderness. EYES: [place] conjunctiva. No petechia or hemorrhage. Pupils equal, round and reactive to light. No scleral icterus. No injection or drainage. EARS, NOSE AND THROAT: Nose without bleeding or purulent nasal discharge. Mucous membranes pink and moist. No oral lesions noted. NECK: Trachea midline. Supple and not tender, no meningeal signs. Incision look ok CARDIOVASCULAR: Regular rate and rhythm. No murmurs, rubs or gallops heard RESPIRATORY: Has few scattered wheezing ABDOMEN: Soft, non-tender, nondistended. Bowel sounds present and normoactive. No guarding. No rebound. No organomegaly. EXTREMITIES: No clubbing, cyanosis. RLE - erythema almost gone, swelling better; has iodoform packing in place. NEUROLOGICAL: Nonfocal PSYCHIATRIC: Normal affect, calm and cooperative. LINE: No evidence of infection Assessment & Plan Remarks IMPRESSION Cellulitis R leg with abscess - has had muscle flap to that leg - no hardware - C/S GBS - cellulitis better; iodoform packing facilitating drainage of pus which has improved UGIB from stomach, hx gastric vascular ectasia DVT RLE Known COPD RECOMMENDATION Change to Amoxicillin 500 TID x 10 days Wound care per surgery - patient comfortable doing the packing Clinically doing well from ID standpoint I will be available prn Explained plan to the patient Mary Keen MD Jun 28, 2017 12:58
[2017-06-28] MEDS ORDERED: AMOXICILLIN (TRIHYDRATE) 500 MG CAP PO SCH (13:00)
--- NOTE | 2017-06-28 13:06 | RADRPT ---
EXAM DATE/TIME: 06/28/2017 12:35 [facility] COMPARISON: No previous studies available for comparison. INDICATIONS : Short of breath. MEDICAL HISTORY : Chronic obstructive pulmonary disease. Gastroesophageal reflux disease. Hypertension. DVT, skin cance r. SURGICAL HISTORY : Cataract surgery. Skin flap on right leg. ENCOUNTER: Subsequent ACUITY: 4 - 6 days PAIN SCORE: 0/10 LOCATION: Bilateral chest FINDINGS: A single view of the chest demonstrates the lungs to be symmetrically aerated without evidence of mas s, infiltrate or effusion. The cardiomediastinal contours are unremarkable. Osseous structures are intact. CONCLUSION: 1. No acute cardiopulmonary findings. Sky Rios MD on June 28, 2017 at 13:03 Board Certified Radiologist. This report was verified electronically.
--- NOTE | 2017-06-28 15:22 | HHI.PR ---
cc: Jordan Kerr MD Subjective Subjective Notes Resting in bed Very happy with the care Feels comfortable doing dressing change at home Objective Vitals/I&O Vital Signs Date Time Temp Pulse Resp B/P (MAP) Pulse Ox O2 Delivery O2 Flow Rate FiO2 06/28/17 12:00 98.2 84 19 135/64 (87) 93 06/26/17 18:15 Nasal Cannula 2 Aerosol Mask Labs Laboratory Tests Test 06/28/17 07:24 White Blood Count 10.2 Red Blood Count 3.41 Hemoglobin 9.9 Hematocrit 29.7 Mean Corpuscular Volume 87.0 Mean Corpuscular Hemoglobin 29.2 Mean Corpuscular Hemoglobin Concent 33.5 Red Cell Distribution Width 17.4 Platelet Count 242 Mean Platelet Volume 9.2 Blood Urea Nitrogen 13 Creatinine 0.97 Random Glucose 93 Calcium Level 8.4 Magnesium Level 2.0 Sodium Level 143 Potassium Level 3.6 Chloride Level 110 Carbon Dioxide Level 23.1 Anion Gap 10 Estimat Glomerular Filtration Rate 57 Date/Time Source Procedure Growth Status 06/23/17 10:40 Wound Leg Gram Stain - Final Complete 06/23/17 10:40 Wound Culture - Final Group B Beta Strep Complete Cardiovascular: Regular Lungs: Clear Abdomen: Non-distended, Non-tender Extremities: Other (see below ) Narrative Exam LEFT leg: no residual pus in cavity after removal of packing; redness essentially gone on exam today; packing replaced A/P Assessment and Plan 72 year old female with GIB on OAC; DVT to RLE; draining RLE wound -S/p repeat EGD -Will continue antibiotics---okay to transition to PO from GS standpoint -Continue dressing changes--- Iodoform dressing changes BID and PRN -Okay from GS standpoint to shower between dressing changes - clear for DC--- patient can follow up with Dr. Kerr in about 2 weeks or with her Plastic Surgeon Dr. Joiner Attending Statement The exam, history, and the medical decision-making described in the above note were completed with the assistance of the mid-level provider. I reviewed and agree with the findings presented. I attest that I had a [id number] encounter with the patient on the same day, and personally performed and documented my assessment and findings in the medical record. wound continues to improve, dressing taken down, would cleaned and repacked ok for DC from wound care standpoint, fu with me or would care MD/center will sign off Shaista Olguin/Head Knitting Machine [employer]er JOANA Jun 28, 2017 15:22 Jordan Kerr MD Jun 28, 2017 15:44
[2017-06-28] MEDS ORDERED: CARA1SUS3 PO (15:53)
[2017-06-28] MEDS ORDERED: AMOX500C PO (15:53)
--- NOTE | 2017-06-28 15:56 | HHI.DCPOC ---
Discharge Care Plan Diagnosis: (1) Wound of lower extremity (2) DVT (deep venous thrombosis) (3) GAVE (gastric antral vascular ectasia) (4) Anticoagulated (5) GI bleed Goals to Promote Your Health * To prevent worsening of your condition and complications * To maintain your health at the optimal level Directions to Meet Your Goals Take your medications as prescribed Follow your dietary instruction Follow activity as directed Keep your appointments as scheduled Take your immunizations and boosters as scheduled If your symptoms worsen call your PCP, if no PCP go to Urgent Care Center or Emergency Room Smoking is Dangerous to Your Health. Avoid second hand smoke Call the 24-hour hour crisis hotline for domestic abuse at Toni Falcon DO Jun 28, 2017 15:56
[2017-06-28 16:00] VITALS: BP 150/67; PULSE 84; RESP 19; TEMP 96.8; O2SAT 94
--- NOTE | 2017-06-28 16:02 | HHI.DS ---
Discharge Summary Admission Date Jun 23, 2017 at 11:54 Discharge Date: Jun 28, 2017 Admitting Diagnosis gi bleed,anticoagulated,symptomatic anemia (1) GI bleed ICD Code: K92.2 - Gastrointestinal hemorrhage, unspecified Diagnosis: Principal Status: Acute (2) Wound of lower extremity ICD Code: S81.809A - Unspecified open wound, unspecified lower leg, initial encounter Diagnosis: Principal (3) DVT (deep venous thrombosis) ICD Code: I82.409 - Acute embolism and thrombosis of unspecified deep veins of unspecified lower extremity (4) GAVE (gastric antral vascular ectasia) ICD Code: K31.819 - Angiodysplasia of stomach and duodenum without bleeding Procedures 06/24-EGD - revealed active bleeding in the stomach, specifically the patient has a 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 Several areas were cauterized using the APC device. Some areas were difficult to visualize because of the aforementioned reasons above. The patient was given 1 unit of blood during the procedure. Brief History - From Admission patient is a 72 y/o female with history of recently-diagnosed right leg DVT, anemia, hypertension, dyslipidemia, hypothyroidism and COPD who presented to ER with rectal bleed. she says that she's been recently treated for cellulitis of the right lower extremity. she had a venous doppler of the right leg which revealed DVT. she was seen in ER few days ago and was discharged home on Xarelto. she says that since then she's been feeling tired, fatigued with some sob and on and off dizziness. she says that she's always had black stool but she related this to iron supplements that she was taking. this morning when she was at her PCP's office, when she went to bathroom, she saw some bright red blood mixed with her stool.she denies any abdominal pain or emesis although she says that had some nausea earlier. she had an EGD about two years ago during which she had cautery for water-melon stomach. she also had a colonoscopy two years which was reportedly normal. she's being followed up by . CBC/BMP: 06/28/17 0724 06/28/17 0724 Significant Findings Laboratory Tests Test 06/25/17 19:05 06/26/17 06:35 06/26/17 09:22 06/27/17 08:24 Hemoglobin 8.4 GM/DL (11.6-15.3) 7.7 GM/DL (11.6-15.3) 9.4 GM/DL (11.6-15.3) Hematocrit 24.8 % (35.0-46.0) 22.6 % (35.0-46.0) 27.1 % (35.0-46.0) Potassium Level 3.4 MEQ/L (3.5-5.1) Chloride Level 109 MEQ/L (98-107) 109 MEQ/L (98-107) Estimat Glomerular Filtration Rate 80 ML/MIN (>89) 84 ML/MIN (>89) White Blood Count 12.3 TH/MM3 (4.0-11.0) Red Blood Count 3.17 MIL/MM3 (4.00-5.30) Neutrophils (%) (Auto) 85.6 % (16.0-70.0) Neutrophils # (Auto) 10.5 TH/MM3 (1.8-7.7) Random Glucose 111 MG/DL (74-106) Calcium Level 8.1 MG/DL (8.5-10.1) Test 06/28/17 07:24 Red Blood Count 3.41 MIL/MM3 (4.00-5.30) Hemoglobin 9.9 GM/DL (11.6-15.3) Hematocrit 29.7 % (35.0-46.0) Red Cell Distribution Width 17.4 % (11.6-17.2) Calcium Level 8.4 MG/DL (8.5-10.1) Chloride Level 110 MEQ/L (98-107) Estimat Glomerular Filtration Rate 57 ML/MIN (>89) Imaging Last Impressions Chest X-Ray 06/28/17 0000 Signed Impressions: Service Date/Time: Wednesday, June 28, 2017 12:35 - CONCLUSION: 1. No acute cardiopulmonary findings. Sky Rios MD IVC Filter Placement X-Ray 06/26/17 1252 Signed Impressions: Service Date/Time: Monday, June 26, 2017 11:21 - CONCLUSION: Uncomplicated inferior vena cava filter placement as above. Dayton Iglesias MD Lower Extremity MRI 06/25/17 0000 Signed Impressions: Service Date/Time: Sunday, June 25, 2017 13:23 - CONCLUSION: 1. Small pretibial abscess measuring up to 3 x 0.9 cm with surrounding cellulitis. No evidence for osteomyelitis. Sunil Templeton MD Lower Extremity Ultrasound 06/24/17 0000 Signed Impressions: Service Date/Time: Saturday, June 24, 2017 15:48 - CONCLUSION: Elongated fluid collection in the anterior soft tissues of the proximal right lower leg. Differential diagnosis includes abscess and hematoma. This finding can be further evaluated with MRI with and without contrast or CT with contrast. Norberto Reece MD PE at Discharge Gen: NAD. HEENT: anicteric. Lungs: clear. Cardiac: regular rhythm. GI: abdomen soft, nontender, good bowel sounds. Extremities: right LE with bandage in place, bilateral LE edema 1-2+. Neuro: No gross deficits. Psych: Mood and affect appropriate. Pt update on day of discharge The patient complained of a little shortness of breath with ambulation. She passed the oxygen walk test. She was excited to go home. She had no other acute complaints. She said she will take care of her wound. Hospital Course Acute anemia secondary to GI bleeding GI was consulted. S/P EGD 06/24: vascular ectasia s/p cautery. S/p repeat EGD . S/p transfusion of seven units of red cells. Her anticoagulation was discontinued. She will continue a PPI and sucralfate. She will follow up with GI as an outpt. She will have a repeat CBC in 3-5 days. Recent history of right leg peroneal DVT The pt was on anticoagulation as an outpt but she presented with GI bleeding. Hematology was consulted. It was decided to discontinue anticoagulation. Invasive radiology was consulted and an IVC filter was placed. She will not be discharged on anticoagulation. Right Abscess with cellulitis Spontaneously draining. GBS growing in culture. ID was consulted. Antibiotics were switched to Ceftriaxone 06/25. The pt will transition to amoxicillin x 10 days upon discharge. General surgery was also consulted. The pt will continue dressing changes per surgery and will follow up with surgery as an outpt. Pt Condition on Discharge: Stable Discharge Disposition: Discharge Home Discharge Time: > 30 minutes Discharge Instructions DIET: Follow Instructions for: As Tolerated, No Restrictions Activities you can perform: Weight Bearing as Sid Follow up Referrals: Gastroenterology - 1 Week PCP Follow-up Surgical - 1 Week with Jordan Kerr MD New Orders: CBC NO DIFF - 3-5 Days New Medications: Sucralfate Liq (Carafate Liq) 1 Gm/10 Ml Susp 1 GM PO TID for Duodenal ulcer, #900 ML 0 Refills on empty stomach Amoxicillin (Amoxicillin) 500 Mg Cap 500 MG PO TID for Infection for 10 Days, CAP Continued Medications: Calcium Carbonate-Vitamin D (Calcium 600+D 200) 600-200 Mg-Unit Tab 1 TAB PO BID for Nutritional Supplement, TAB 0 Refills Citalopram (Citalopram) 40 Mg Tab 40 MG PO DAILY for Control Depression, #30 TAB 0 Refills Cyanocobalamin (Vitamin B-12) 1,000 Mcg Tab 1000 MCG PO DAILY for Nutritional Supplement, #1 BOTTLE 0 Refills Ferrous Sulfate (Ferrous Sulfate) 325 Mg (65 Mg Iron) Tablet 325 MG PO DAILY for Nutritional Supplement, #30 TAB 0 Refills Flaxseed (Linseed) (Flaxseed Oil) 1,000 Mg Cap 1 TAB PO DAILY Fluticasone-Salmeterol Inh (Advair Diskus Inh) 500-50 Mcg/Blist Aer 1 PUFF INH BID, #1 INHALER 0 Refills Rinse mouth after use. Hydrochlorothiazide (Hydrochlorothiazide) 25 Mg Tab 25 MG PO DAILY, #30 TAB 0 Refills Ipratropium Neb (Ipratropium Neb) 0.5 Mg/2.5 Ml Amp 0.5 MG NEB DAILY for Breathing Treatment, #1 NEBULE 0 Refills Levothyroxine (Levothyroxine) 75 Mcg Tab 75 MCG PO DAILY for Thyroid, #30 TAB 0 Refills Losartan (Losartan) 25 Mg Tab 25 MG PO DAILY for Blood Pressure Management, #30 TAB 0 Refills Metoprolol Tartrate (Metoprolol Tartrate) 25 Mg Tab 12.5 MG PO BID, #60 TAB 0 Refills Multiple Vitamins W/ Minerals (Centrum) 1 Chew 1 TAB CHEW DAILY for Nutritional Supplement, TAB 0 Refills Omeprazole (Omeprazole) 20 Mg Tab 20 MG PO DAILY, #30 TAB 0 Refills Pravastatin (Pravastatin) 40 Mg Tab 40 MG PO DAILY for Cholesterol Management, #30 TAB 0 Refills Discontinued Medications: Ciprofloxacin (Cipro) 500 Mg Tab 500 MG PO BID for Infection, TAB 0 Refills Rivaroxaban (Xarelto) 15 Mg Tab 15 MG PO Q12HR for Blood Clot Prevention for 21 Days, TAB 0 Refills Toni Falcon DO Jun 28, 2017 16:02
== END 2017-06-28 18:02 | disposition home or self-care (01) | DRG 802 ==
LOC: NEPE 09:30 → NEDA 11:54 → N07A 14:59
PROVIDERS: ADMIT Hospitalist; ATTEND Hospitalist
PROC: 30233N1 Transfusion of Nonautologous Red Blood Cells into Peripheral Vein, Percutaneous Approach (ICD-10-PCS; 2017-06-23)
PROC: 0D578ZZ Destruction of Stomach, Pylorus, Via Natural or Artificial Opening Endoscopic (ICD-10-PCS; 2017-06-24)
PROC: B5191ZZ Fluoroscopy of Inferior Vena Cava using Low Osmolar Contrast (ICD-10-PCS; 2017-06-26)
PROC: 0D578ZZ Destruction of Stomach, Pylorus, Via Natural or Artificial Opening Endoscopic (ICD-10-PCS; 2017-06-26)
PROC: 06H03DZ Insertion of Intraluminal Device into Inferior Vena Cava, Percutaneous Approach (ICD-10-PCS; principal; 2017-06-26 16:48)
DX: D62 Acute posthemorrhagic anemia (principal); K31.811 Angiodysplasia of stomach and duodenum with bleeding; L02.415 Cutaneous abscess of right lower limb; I82.4Z1 Acute embolism and thrombosis of unspecified deep veins of right distal lower extremity; L03.115 Cellulitis of right lower limb; J44.9 Chronic obstructive pulmonary disease, unspecified; I10 Essential (primary) hypertension; E03.9 Hypothyroidism, unspecified; E78.00 Pure hypercholesterolemia, unspecified; E87.6 Hypokalemia; B95.1 Streptococcus, group B, as the cause of diseases classified elsewhere; K21.9 Gastro-esophageal reflux disease without esophagitis; K57.90 Diverticulosis of intestine, part unspecified, without perforation or abscess without bleeding; Z79.01 Long term (current) use of anticoagulants; Z87.891 Personal history of nicotine dependence; Z85.828 Personal history of other malignant neoplasm of skin; Z86.010 Personal history of colon polyps; Z92.3 Personal history of irradiation
CPT/HCPCS: 36430; 37191; 71045; 73720; 76882; 76937; 80048; 80053; 83735; 85014; 85018; 85025; 85027; 85610; 86403; 86850; 86900; 86901; 86920; 87070; 87205; 93005; 94150; 94618; 94664; 99291; A9579; C1769; C1880; C1887; C9113; J0330; J0696; J0744; J1100; J1940; J2370; J2405; J3010; J3370; J7030; J7050; J7120; J7613; P9016; Q9967